=== PATIENT | male | born 1975 | race Caucasian/White ===

== ENCOUNTER 2017-09-03 08:26 | Inpatient (IN) ==
--- NOTE | 2017-09-03 08:35 | Emergency Department Note ---
Disposition Clinical Impression: Abscess Disposition: Admitted As Inpatient Condition: Fair Referrals: Mindy Heranndes [Primary Care Provider] - Time of Disposition: 09:57 General Adult HPI - General Chief complaint: ED Recheck/Abnormal Lab/Rx Stated complaint: Cyst Groin area Time Seen by Provider: 09/03/17 08:32 Source: patient Limitations: no limitations Nursing Notes Reviewed: Yes Vital Signs Reviewed: Yes - History of Present Illness HPI Narrative: Mr. Cardenas, a 42yo male, presents from home for wound recheck. He was seen and evaluated in this department 2 days ago for a perineal abscess which was I indeed, he was discharged on Keflex. He has been compliant is not missed any interbody doses. He is concerned as the abscess is larger than when he was discharged previously. Pain Scale: 10 - Related Data Previous Rx's Medication Instructions Recorded Cephalexin [Keflex] 500 mg PO TID #15 capsule 09/01/17 OxyCODONE/APAP 5/325 [Percocet 1 each PO Q6HR PRN #12 tablet 09/01/17 5/325 MG] Allergies Allergy/AdvReac Type Severity Reaction Status Date / Time fentanyl Allergy Nausea Verified 09/03/17 08:31 morphine Allergy Hives Verified 09/03/17 08:31 Past Medical History - Past Medical History Medical history: Reports: no medical history Psychiatric history: Reports: depression - Social History Smoking Status: Current every day smoker Smokeless Tobacco Status: No Alcohol use: Reports: occasionally Drug use: Reports: opiates Physical Exam Vital Signs Reviewed General: Patient is alert, oriented, and in no acute distress. HEENT: No facial asymmetry. Head is normocephalic and atraumatic. PERRLA, EOMI. Cardiovascular: Heart regular rate and rhythm without clicks, rubs, gallops, or murmurs. No JVD. PMI nondisplaced. Respiratory: Symmetric chest rise with good respiratory effort. Bilateral breath sounds are clear without wheezing, crackles, or rhonchi. Abdomen: Obese. Bowel sounds present normoactive x-4 quadrants. Abdomen is soft, nondistended, and nontender. Musculoskeletal: Spontaneously moving all extremities Neuro: Sensation to light touch intact in perineum and in lower extremities. Skin: Fluctuant erythematous abscess in perineium, just posterior to scrotum, measuring 3cm x 1.5cm. Psych: Patient's affect is appropriate for situation. - General Limitations: no limitations General appearance: alert, in no apparent distress Course Course Narrative: Patient was seen and evaluated in the ED [address] showed a abscess did not track to the rectum. There was bedside I indeed. Patient was discharged home on Keflex. CT scan on previous visit showed no tracking to the anus. Bedside ultrasound on this visit showed drainable fluid consistent with abscess, no Doppler pulse. Concern is patient has recurrent and worsening abscess despite outpatient by mouth antibiotics. He is agreeable to admission to the hospital for IV antibiotics and surgical consultation. I discussed the patient with on-call general surgery, Dr. Peña, who agrees to accept the patient on consultation. He recommends bedside I&D while in the emergency department with iodoform packing. Abscess was I&D at bedside. Approximately 15 mm of foul-smelling brown/ purulent fluid erupted. Was irrigated and packed with iodine gauze. Aerobic and anaerobic cultures sent. Empiric vancomycin and Zosyn started. Concern for the need of anaerobic coverage given the location of the abscess in his persistence despite outpatient Keflex. I discussed the patient with the admitting hospitalist, Dr. Arguelles, agrees to accept the patient for continued evaluation and management with general surgery on consultation. Vital Signs Temperature 98.1 F 09/03/17 08:28 Pulse Rate 112 09/03/17 08:28 Respiratory Rate 16 09/03/17 08:28 Blood Pressure 139/76 09/03/17 08:28 O2 Sat by Pulse Oximetry 99 09/03/17 08:28 Temperature 98.1 F 09/03/17 08:28 Pulse Rate 86 09/03/17 09:38 Respiratory Rate 18 09/03/17 09:38 Blood Pressure 126/78 09/03/17 09:38 O2 Sat by Pulse Oximetry 96 09/03/17 09:38 Oxygen Delivery Oxygen Delivery Room Air Procedures - Abscess I/D Consent obtained: verbal consent Site: other (Perineum) Sedation/analgesia: none Local Anesthetic: lidocaine 1%, with epi Amount of Anesthesia Used (mL): 5 Technique: incised with #11 blade Amount of fluid: 15 (Foul smelling, purulant, brown) Irrigation: Yes Packing used?: iodoform Complications: pain Medical Decision Making - Lab Data Result diagrams: 09/03/17 08:55 09/03/17 08:55 Lab Results 09/03/17 09/03/17 09/03/17 Range/Units 08:55 08:55 08:55 WBC 10.3 (4.3-11.1) K/mcL RBC 4.95 (4.19-5.50) M/mcL Hgb 14.6 (12.9-16.9) g/dL Hct 43.5 (37.5-50.1) % MCV 87.9 (83.0-100.0) fL MCH 29.5 (28.0-33.3) pg MCHC 33.6 (31.6-35.5) g/dL RDW 13.0 (11.5-14.5) % Plt Count 357 (140-400) K/mcL MPV 9.8 (9.4-12.4) fL Immature Gran % 0.4 (0-4) % Seg Neutrophils % 79.0 % Lymphocytes % 13.4 % Monocytes % 3.9 % Eosinophils % 3.0 % Basophils % 0.3 % Neutrophils # 8.2 (1.6-8.9) K/mcL Lymphocytes # 1.4 (0.6-4.6) K/mcL Monocytes # 0.4 (0.0-1.3) K/mcL Eosinophils # 0.3 (0.0-0.6) K/mcL Basophils # 0.0 (0.0-0.2) K/mcL Sodium 138 (136-145) mEq/L Potassium 3.6 (3.5-5.1) mEq/L Chloride 105 (98-107) mEq/L Carbon Dioxide 28 (23-29) mEq/L BUN 9 (6-20) mg/dL Creatinine 0.98 (0.70-1.30) mg/dL Est GFR ( Amer) > 60 (> 60) Est GFR (Non-Af Amer) > 60 (> 60) BUN/Creatinine Ratio 9 (6-26) Glucose 130 H (70-105) mg/dL Calculated Osmolality 286 (280-300) Lactic Acid 2.3 H (0.5-2.2) mmol/L Calcium 9.0 (8.6-10.3) mg/dL Attestation Statement - Attestation Attestation: I examined this patient and my medical decision-making was reviewed with the Resident Physician. I agree with the documented findings, disposition and treatment plan as described except to the extent set forth below. Patient to the ED with a chief complaint of a worsening abscess. Patient was seen 2 days ago and had an I&D of an abscess posterior to the scrotum. He states he got more painful and has reaccumulated. On examination he has an erythematous area of fluctuance posterior to the scrotum and anterior to his anus. Plan. Labs IV antibiotics and admission.
[2017-09-03] MEDS ORDERED: *HR* HYDROmorphone (PF) 1 MG/ML SYRINGE IVP ONE (09:05)
[2017-09-03 09:08] LABS: Basophils % 0.3 %; Eosinophils # 0.3 K/mcL (0.0-0.6); Hematocrit 43.5 % (37.5-50.1); Hemoglobin 14.6 g/dL (12.9-16.9); Immature Granulocytes % 0.4 % (0-4); Lymphocytes # 1.4 K/mcL (0.6-4.6); Lymphocytes % 13.4 %; Mean Corpuscular HGB Conc 33.6 g/dL (31.6-35.5); Mean Corpuscular Hemoglobin 29.5 pg (28.0-33.3); Mean Corpuscular Volume 87.9 fL (83.0-100.0); Mean Platelet Volume 9.8 fL (9.4-12.4); Monocytes # 0.4 K/mcL (0.0-1.3); Monocytes % 3.9 %; Neutrophils # 8.2 K/mcL (1.6-8.9); Platelet Count 357 K/mcL (140-400); Red Blood Count 4.95 M/mcL (4.19-5.50)
[2017-09-03 09:19] LABS: BUN/Creatinine Ratio 9 (6-26); Blood Urea Nitrogen 9 mg/dL (6-20); Carbon Dioxide 28 mEq/L (23-29); Chloride 105 mEq/L (98-107); Glucose 130 mg/dL (70-105); Osmolality,Calculated 286 (280-300); Potassium 3.6 mEq/L (3.5-5.1); Sodium 138 mEq/L (136-145); eGFR For African Americans > 60 (> 60); eGFR For Non-African Americans > 60 (> 60)
[2017-09-03] MEDS ORDERED: Piperacillin/Tazobactam 3.375 GM in Water for inj. (sterile) 20 ML IVP ONE (09:41)
[2017-09-03] MEDS ORDERED: Vancomycin 1,500 MG in D5% in Water 250 ML IVPB ONE (10:00)
[2017-09-03] MEDS ORDERED: 0.9 % Sodium Chloride 1,000 ML IVC ONE (10:23)
[2017-09-03] MEDS ORDERED: *HR* OxyCODONE/APAP 5/325 TABLET PO ONE ×2 (10:38→16:07)
--- NOTE | 2017-09-03 11:38 | Event Note ---
Date of Encounter: 09/03/17 Time of Encounter: 11:37 Patient seen and examined with nurse practitioner. Perennial abscess with failed outpatient antibiotic therapy. Patient had I&D performed in the emergency room. Lactic acid 2.3, will hydrate. Vitals are stable. We will start the patient on vancomycin and Zosyn. Await cultures. Surgery notified
[2017-09-03] MEDS ORDERED: Naloxone 0.4 MG/ML INJ IVP PRN (11:57)
[2017-09-03] MEDS ORDERED: Ondansetron ODT 4 MG TAB.RAPDIS SL PRN (11:57)
[2017-09-03] MEDS ORDERED: Acetaminophen 325 MG TABLET PO PRN (11:57)
[2017-09-03] MEDS ORDERED: Vancomycin 2,000 MG in D5% in Water 250 ML IVPB SCH (12:00)
--- NOTE | 2017-09-03 12:10 | Internal Med History&Physical ---
Date of Encounter: 09/03/17 Time of Encounter: 12:07 Assessment and Plan (1) Abscess Current visit: Yes Status: Acute Abscess I&D in the ER with wound culture sent patient has failed outpatient treatment of Keflex we will initiate on vancomycin and Zosyn Surgery has been consulted per ER physician-Dr. Peña (2) DVT prophylaxis Current visit: Yes Status: Acute Lovenox subcutaneous (3) Elevated lactic acid level Current visit: Yes Status: Acute 1 we will continue with IV fluids overnight-recheck lactate Internal Medicine - H&P: HPI Chief complaint: groin pain Admitted From: Emergency Dept Plans for Post Hospital Care: Home History of present illness: Mr. Cardenas is a 42 year old male no past medical history. According to patient he was evaluated 2 days ago and this ER for a a perineal abscess at that time the abscess was I/D, CT of pelvis shows no tunneling or he was given oral Keflex and discharged home. He is taking his medications as prescribed and has not missed any dose, however he continues to experience discomfort and has noted abscess is growing larger since being discharged. He returned to the ER for evaluation. In the ER ultrasound was completed which did reveal abscess with fluid, surgery was consult. Advised I&D, abscess was I&D with brown purulent fluid which was sent for culture. The wound was packed with iodine gauze. Patient has been A for further workup and evaluation Past Med Surg Social Fam HX - Past Medical History Medical history: no medical history Psychiatric history: depression - Social History Smoking Status: Current every day smoker Packs per day: 1 Smokeless Tobacco Status: No Alcohol use: none, occasionally Drug use: opiates - Additional Family History Additional family history: Reviewed and noncontributory Internal Medicine - H&P: Meds Cephalexin [Keflex] 500 mg PO TID #15 capsule 09/01/17 [Rx] OxyCODONE/APAP 5/325 [Percocet 5/325 MG] 1 each PO Q6HR PRN #12 tablet 09/01/17 [Rx] 3 Allergy/AdvReac Type Severity Reaction Status Date / Time fentanyl Allergy Nausea Verified 09/03/17 08:31 morphine Allergy Hives Verified 09/03/17 08:31 All Systems PM: A 10-system review of systems was performed and is negative for pertinent findings except as documented above in the HPI. - Constitutional Constitutional: no chills, no fever(s), no night sweats - EENT Eyes: no change in vision, no discharge, no pain, no photophobia Nose, mouth and throat: no dysphagia, no nasal discharge, no neck pain, no sore throat - Cardiovascular Cardiovascular ROS IM: no chest pain, no diaphoresis, no dyspnea, no lightheadedness, no palpitations, no syncope - Respiratory Respiratory: no cough, no dyspnea, no wheezing, no excessive phlegm production - Gastrointestinal Gastrointestinal: no abdominal pain, no diarrhea, no hematemesis, no hematochezia, no melena, no nausea, no vomiting - Musculoskeletal Musculoskeletal ROS IM: no numbness, no tingling - Integumentary Integumentary IM: no rash, no unusual bruising - Neurological Neurological ROS: no confusion, no convulsions, no focal weakness, no numbness, no tingling, no tremor(s) - Hematologic/Lymphatic Hematologic/Lymphatic: no easy bruising - Constitutional Vitals: Temp Pulse Resp BP Pulse Ox 98.1 F 86 16 121/77 96 09/03/17 08:28 09/03/17 09:38 09/03/17 11:00 09/03/17 11:00 09/03/17 09:38 General appearance: Present: A&O X 3, answers questions appropriately - Head Head exam: Present: atraumatic, normocephalic - Eye Eye exam: Present: PERRL, conjuntiva pink, sclera anicteric Pupils: Present: PERRL - Neck Neck exam general surgery: Present: supple, trachea midline. Absent: lymphadenopathy - Respiratory Respiratory exam: Present: CTAB. Absent: accessory muscle use, rales, rhonchi, wheezes - Cardiovascular Cardiovascular exam: Present: RRR, +S1, +S2. Absent: diastolic murmur, gallop, rubs, systolic murmur - GI/Abdominal GI/Abdominal exam: Present: normal bowel sounds, soft, no peritoneal signs. Absent: distended, tenderness - Incison Incision: Present: red Comments: Incision to perineal area with packing intact Internal Med - H&P Results - Labs CBC & Chem 7: 09/03/17 08:55 09/03/17 08:55
--- NOTE | 2017-09-03 12:51 | General Surgery Consult Note ---
Date of Encounter: 09/03/17 Time of Encounter: 12:50 Assessment and Plan (1) Abscess Current Visit: Yes Status: Acute An I&D was performed in the emergency department prior to evaluation by surgery. Of note that the incision was small, and the packing was laying on the dressing when evaluated by this COLLETER. I did review this with the patient and the decision was made to re-anesthetized him and increase the area of the incision. See procedure note details above. Plan: -wound care daily: remove dressing and packing beginning 09/04/2017. Shower with antibacterial soap. Repack with 1/4 inch iodoform gauze for 2 days then pack with 1/4 inch plain gauze daily. Cover with a dry dressing and tape secure. Change outer dressing prn and after bowel movements. Patient states he has a relative who would do his packing for him. He denies need for home health -no indication to keep patient NPO. Dietary orders per primary team. -Follow-up in the office in one week for reevaluation. -Check hgbA1c -No acute surgical indication is noted at this time. Surgery will sign off at this time. Thank you for allowing us to participate in Mr. Chandler care. Please call for any further questions. (2) Elevated lactic acid level Current Visit: Yes Status: Acute IV ATBX and management per primary team. Wound cultures pending History of Present Illness Consult date: 09/03/17 (Dr. Aneudy Peña) Requesting physician: Ophelia Soto See History of present illness: Mr Cardenas is a 42 year old male with a PMH of smoking and opiate use who is admitted for a perianal abscess for which he failed outpatient keflex therapy. He presented to the ED on 09/03/2017 and underwent an I&D of the area with noted return of purulent material. He was packed with iodofomr. Surgery has been asked to see this patient for further recommendations or management of abscess. He reports multiple episodes of abscess in the same are over the last year. He denies fever, chills, chest pain, shortness of breath, difficulty urinating, changes in bowel habits, black, bloody, or tarry stool, constipation, or diarrhea. He denies IV drug use. He denies a history of diabetes. Past Med Surg Social Fam HX - Past Medical History Source: patient, old records reviewed Medical history: other (opiate use) Psychiatric history: depression - Past Surgical History Surgical History: no surgical history - Social History Smoking Status: Current every day smoker Packs per day: 1 Smokeless Tobacco Status: No Alcohol use: none, occasionally Drug use: opiates Medications and Allergies Cephalexin [Keflex] 500 mg PO TID #15 capsule 09/01/17 [Rx] OxyCODONE/APAP 5/325 [Percocet 5/325 MG] 1 each PO Q6HR PRN #12 tablet 09/01/17 [Rx] Adhesive Tape [Paper Tape] 1 each TP AD #1 tape 09/03/17 [Rx] Gauze Bandage [Gauze] 4 each TP AD #120 bandage 09/03/17 [Rx] Polyhexam Biguan/Gauze Bandage [Curity Amd Packing Strips] 1 each TP DAILY #30 strip 09/03/17 [Rx] 3 Allergy/AdvReac Type Severity Reaction Status Date / Time fentanyl Allergy Nausea Verified 09/03/17 08:31 morphine Allergy Hives Verified 09/03/17 08:31 Review of Systems All systems PM: reviewed and no additional remarkable complaints except as stated All systems PM: A 10-system review of systems was performed and is negative for pertinent findings except as documented above in the HPI. General Surgery Exam Initial Vital Signs Temp Pulse Resp BP Pulse Ox 98.1 F 112 16 139/76 99 09/03/17 08:28 09/03/17 08:28 09/03/17 08:28 09/03/17 08:28 09/03/17 08:28 - General physical appearance well developed, well nourished, no distress, moderate pain - ENT normal nares, normal mucosa, dentures, atraumatic - Neck trachea midline, no venous distension - Respiratory normal expansion, normal respiratory effort, clear to auscultation - Cardiovascular Cardiovascular exam: Present: RRR, 15, 16 - Abdomen Abdomen general surgery: Present: bowel sounds present, soft, non tender - Integumentary Integumentary general surgery: Present: other (Draining area in the perineum noted. ) - Neurologic Present: CN 2-12 grossly intact, normal coordination, normal sensation - Musculoskeletal Present: normal gait, normal posture - Psychiatric Psychiatric general surgery: Present: A&Ox3, appropriate, oriented to person, oriented to place, oriented to time, speech is normal, memory intact Exam Initial Vital Signs Temp Pulse Resp BP Pulse Ox 98.1 F 112 16 139/76 99 09/03/17 08:28 09/03/17 08:28 09/03/17 08:28 09/03/17 08:28 09/03/17 08:28 Results - Labs 09/03/17 08:55 09/03/17 08:55 Abnormal lab results Glucose 130 mg/dL (70-105) H 09/03/17 08:55 Lactic Acid 2.3 mmol/L (0.5-2.2) H 09/03/17 08:55 All other labs normal. Procedures: General Surgery - Abscess I/D Additional comments: ABSCESS INCISION AND DRAINAGE NOTE INDICATION: Abscess manifested as a tender, swollen fluctuant mass in the superficial subcutaneous tissue. INFORMED CONSENT: The risks and benefits of the procedure including incomplete drainage, scarring, infection and bleeding was explained and the patient verbalized their understanding and wished to proceed with the procedure. PROCEDURE: The area of greatest fluctuance was identified, prepped, and draped in a sterile fashion. Local anesthetic (10 MLs of 2% lidocaine) was introduced subcutaneously over the area of greatest fluctuance. A linear incision was then made over the area of greatest fluctuance, with immediate return of a large amount of purulent material. The wound was explored with a hemostat to break up loculations and 1/4 inch iodoform gauze packing was placed loosely in the wound. A dressing was then applied. FINDINGS: Purulent drainage. EBL: <5 mL COMPLICATIONS: None. Signature: AMINA Jack Consult Discharge Plan - Plan Additional Instructions: -wound care daily: remove dressing and packing beginning 09/04/2017. -Shower with antibacterial soap. -Repack with 1/4 inch iodoform gauze for 2 days then (beginning 09/06/2017) pack with 1/4 inch plain gauze daily. Cover with a dry dressing and tape secure. -Change outer dressing prn and after bowel movements. Patient states he has a relative who would do his packing for him. He denies need for home health Take the antibiotics prescribed by the medicine doctors at the hospital as directed. Referrals: Mindy Hernandes [Primary Care Provider] - Beverly Ramesh CNP [Advanced Practice Nurse] - 09/12/17 8:00 am Prescriptions: Adhesive Tape [Paper Tape] 1 each TP AD #1 tape Gauze Bandage [Gauze] 4 each TP AD #120 bandage Polyhexam Biguan/Gauze Bandage [Curity Amd Packing Strips] 1 each TP DAILY #30 strip
[2017-09-03] MEDS: 0.9 % Sodium Chloride 1,000 ML IVC SCH (13:49)
[2017-09-03] MEDS ORDERED: Lidocaine 2% Syringe 100 MG/5 ML ONE (14:42)
[2017-09-03] MEDS ORDERED: Lidocaine -MPF 1% 2 ML VIAL ONE ×2 (14:44→14:45)
[2017-09-03 15:23] LABS: Hemoglobin A1C 5.1 %
[2017-09-03] MEDS ORDERED: Piperacillin/Tazobactam 3.375 GM/200 ML BAG IVPB SCH (16:00)
[2017-09-03] MEDS: Piperacillin/Tazobactam 3.375 GM/200 ML BAG IVPB SCH ×2 (16:21→23:22)
[2017-09-03] MEDS: *HR* OxyCODONE/APAP 5/325 TABLET PO PRN ×2 (17:32→23:09)
[2017-09-03] MEDS ORDERED: Melatonin 3 MG TABLET PO PRN (21:23)
[2017-09-03] MEDS: Ibuprofen 600 MG TABLET PO PRN (22:04)
[2017-09-03] MEDS: Vancomycin 2,000 MG in D5% in Water 500 ML IVPB SCH (22:25)
[2017-09-04] MEDS: 0.9 % Sodium Chloride 1,000 ML IVC SCH ×2 (04:08→21:07)
[2017-09-04] MEDS: Ibuprofen 600 MG TABLET PO PRN ×3 (04:11→21:04)
[2017-09-04 04:18] LABS: Basophils % 0.5 %; Eosinophils # 0.4 K/mcL (0.0-0.6); Eosinophils % 5.1 %; Hematocrit 39.2 % (37.5-50.1); Immature Granulocytes % 0.5 % (0-4); Lymphocytes # 2.5 K/mcL (0.6-4.6); Lymphocytes % 33.7 %; Mean Corpuscular HGB Conc 32.4 g/dL (31.6-35.5); Mean Corpuscular Hemoglobin 29.2 pg (28.0-33.3); Mean Corpuscular Volume 90.1 fL (83.0-100.0); Mean Platelet Volume 10.1 fL (9.4-12.4); Monocytes # 0.5 K/mcL (0.0-1.3); Monocytes % 6.3 %; Neutrophils # 3.9 K/mcL (1.6-8.9); Nucleated Red Blood Cells 0.3 /100 WBC (0); Platelet Count 332 K/mcL (140-400); Red Blood Count 4.35 M/mcL (4.19-5.50); Red Cell Distribution Width 12.9 % (11.5-14.5); Segmented Neutrophils % 53.9 %
[2017-09-04 04:23] LABS: Hemoglobin 12.7 g/dL (12.9-16.9)
[2017-09-04 04:49] LABS: BUN/Creatinine Ratio 12 (6-26); Blood Urea Nitrogen 11 mg/dL (6-20); Calcium 8.4 mg/dL (8.6-10.3); Carbon Dioxide 24 mEq/L (23-29); Chloride 110 mEq/L (98-107); Glucose 115 mg/dL (70-105); Magnesium 2.1 mg/dL (1.6-2.6); Osmolality,Calculated 286 (280-300); Potassium 4.1 mEq/L (3.5-5.1); Sodium 138 mEq/L (136-145); eGFR For African Americans > 60 (> 60); eGFR For Non-African Americans > 60 (> 60)
[2017-09-04] MEDS: *HR* OxyCODONE/APAP 5/325 TABLET PO PRN ×4 (05:21→23:21)
[2017-09-04] MEDS ORDERED: *HR* Enoxaparin 80 MG/0.8 ML SYRINGE SQ SCH (07:00)
[2017-09-04] MEDS: Piperacillin/Tazobactam 3.375 GM/200 ML BAG IVPB SCH ×2 (09:12→19:14)
[2017-09-04] MEDS: *HR* Enoxaparin 40 MG/0.4 ML SYRINGE SQ SCH (09:12)
[2017-09-04] MEDS: Vancomycin 2,000 MG in D5% in Water 500 ML IVPB SCH ×2 (09:12→23:21)
--- NOTE | 2017-09-04 18:46 | Internal Med Progress Note ---
Date of Encounter: 09/04/17 Time of Encounter: 11:10 - Assessment and plan (1) Abscess Current Visit: Yes Status: Acute Assessment and plan: Patient presented to emergency department for I&D of perianal abscess. He had been seen previously and failed outpatient Keflex therapy. He presented on 09/03 for increasing size. He underwent an I&D with noted return of purulent drainage. He was packed with iodoform and was evaluated by surgery. Surgery 3 opened the wound due to small size. Wound care daily as ordered by surgery. Patient denies need for home health states family will do the packing for him. He will need to follow up in one week in the office for reevaluation. Surgery has signed off. (2) DVT prophylaxis Current Visit: Yes Status: Acute Assessment and plan: Patient is on Lovenox subcutaneous daily, he is also ambulatory. (3) Elevated lactic acid level Current Visit: Yes Status: Resolved - Time Spent With Patient less than 15 minutes - Subjective Interval history: Sensation of systems appetite 11:10 AM. He is alert and awake. He reports pain , states that he is ready to go home. Education completed on failure of outpatient therapy and need for continued therapy here. Patient agreed. He denies any headache or abdominal pain. He denies dizziness, vision changes, nausea or vomiting, chest pain or shortness of breath. - Constitutional Vitals: Temp Pulse Resp BP Pulse Ox 98 F 73 16 136/73 96 09/04/17 12:08 09/04/17 12:08 09/04/17 12:08 09/04/17 12:08 09/04/17 12:08 General appearance: Present: cooperative, A&O X 3, pleasant, no acute distress, answers questions appropriately - Head Head exam: Present: atraumatic, normal inspection, normocephalic - Eye Eye exam: Present: normal appearance, conjuntiva pink, sclera anicteric - Neck Neck exam general surgery: Present: normal inspection, supple, trachea midline. Absent: lymphadenopathy, tenderness - Respiratory Respiratory exam: Present: CTAB. Absent: accessory muscle use, chest wall tenderness, decreased breath sounds, rales, respiratory distress, rhonchi, wheezes - Cardiovascular Cardiovascular exam: Present: RRR, +S1, +S2. Absent: diastolic murmur, gallop, rubs, systolic murmur - GI/Abdominal GI/Abdominal exam: Present: normal bowel sounds, soft. Absent: distended, hepatomegaly, tenderness - Extremities Exam Extremities exam: Present: normal capillary refill, normal inspection, warm, radial pulses palpable and symmetrical. Absent: calf tenderness, cyanotic, pedal edema - Neurological Exam Neurological exam: Present: alert, oriented X3, no focal deficits. Absent: altered, facial droop, speech deficit - Skin Skin exam: Present: dry, intact, normal color, warm. Absent: rash Internal Medicine: Result - Labs CBC & Chem 7: 09/04/17 03:47 09/04/17 03:47 Labs: Short CBC 09/04/17 Range/Units 03:47 WBC 7.3 (4.3-11.1) K/mcL Hgb 12.7 L D (12.9-16.9) g/dL Hct 39.2 (37.5-50.1) % Plt Count 332 (140-400) K/mcL Neutrophils # 3.9 (1.6-8.9) K/mcL BMP 09/04/17 03:47 Sodium 138 Potassium 4.1 Chloride 110 H Carbon Dioxide 24 BUN 11 Creatinine 0.90 Glucose 115 H Calcium 8.4 L Consult Discharge Plan - Plan Additional Instructions: -wound care daily: remove dressing and packing beginning 09/04/2017. -Shower with antibacterial soap. -Repack with 1/4 inch iodoform gauze for 2 days then (beginning 09/06/2017) pack with 1/4 inch plain gauze daily. Cover with a dry dressing and tape secure. -Change outer dressing prn and after bowel movements. Patient states he has a relative who would do his packing for him. He denies need for home health Take the antibiotics prescribed by the medicine doctors at the hospital as directed. Referrals: Mindy Hernandes [Primary Care Provider] - Beverly Ramesh CNP [Advanced Practice Nurse] - 09/12/17 8:00 am Prescriptions: Adhesive Tape [Paper Tape] 1 each TP AD #1 tape Gauze Bandage [Gauze] 4 each TP AD #120 bandage Polyhexam Biguan/Gauze Bandage [Curity Amd Packing Strips] 1 each TP DAILY #30 strip
[2017-09-04] MEDS ORDERED: *HR* OxyCODONE/APAP 5/325 TABLET PO PRN (18:49)
[2017-09-05] MEDS: Piperacillin/Tazobactam 3.375 GM/200 ML BAG IVPB SCH ×2 (00:21→07:57)
[2017-09-05] MEDS: 0.9 % Sodium Chloride 1,000 ML IVC SCH (04:19)
[2017-09-05] MEDS: *HR* OxyCODONE/APAP 5/325 TABLET PO PRN (05:26)
[2017-09-05] MEDS: *HR* Enoxaparin 40 MG/0.4 ML SYRINGE SQ SCH (05:27)
[2017-09-05] MEDS ORDERED: *HR* OxyCODONE/APAP 5/325 TABLET PO PRN (07:01)
[2017-09-05 07:18] VITALS: BP 127/79
--- NOTE | 2017-09-05 09:30 | Discharge Summary ---
Date of Encounter: 09/05/17 Time of Encounter: 09:00 - Discharge Diagnosis (1) Abscess Priority: Primary Status: Acute Comments: Patient presented to emergency department for I&D of perianal abscess. Failed outpatient Keflex therapy. He presented on 09/03/17 for increasing size of abscess. He underwent an I&D with noted return of purulent drainage. He was packed with iodoform and was evaluated by surgery. Surgery reopened the wound due to small size. Wound care daily as ordered by surgery. Wound CX negative for growth. Patient denies need for home health states family will do the packing for him. He will need to follow up in one week in the office for reevaluation. Bactrim DS for home per recommendation of surgery CAT SITTER. Tylenol and Motrin at home for pain. Dosing discussed. (2) DVT prophylaxis Priority: Secondary Status: Acute Comments: Lovenox subcutaneous daily. Patient was ambulatory in the room. (3) Elevated lactic acid level Priority: Secondary Status: Resolved Comments: Resolved. Patient is afebrile, no tachycardia, normotensive. No signs of sepsis. - Discharge Medications Prescriptions: Adhesive Tape [Paper Tape] 1 each TP AD #1 tape Gauze Bandage [Gauze] 4 each TP AD #120 bandage Polyhexam Biguan/Gauze Bandage [Curity Amd Packing Strips] 1 each TP DAILY #30 strip Sulfamethoxazole/Trimeth DS [Bactrim DS] 1 each PO BID #14 tablet Home Medications: OxyCODONE/APAP 5/325 [Percocet 5/325 MG] 1 each PO Q6HR PRN #12 tablet 09/01/17 [Rx] Adhesive Tape [Paper Tape] 1 each TP AD #1 tape 09/03/17 [Rx] Gauze Bandage [Gauze] 4 each TP AD #120 bandage 09/03/17 [Rx] Polyhexam Biguan/Gauze Bandage [Curity Amd Packing Strips] 1 each TP DAILY #30 strip 09/03/17 [Rx] Acetaminophen [Tylenol] 650 mg PO Q6HR PRN tablet 09/05/17 [Rx] Ibuprofen [Motrin] 600 mg PO Q6HR PRN tablet 09/05/17 [Rx] Sulfamethoxazole/Trimeth DS [Bactrim DS] 1 each PO BID #14 tablet 09/05/17 [Rx] Allergies/Adverse Reactions: 3 Allergy/AdvReac Type Severity Reaction Status Date / Time fentanyl Allergy Nausea Verified 09/03/17 08:31 morphine Allergy Hives Verified 09/03/17 08:31 Date of admission: 09/03/17 10:25 Primary care physician: Mindy Hernandes Discharging clinician: Mindy Subramanian Anticipated date of discharge: 09/05/17 - Patient Status Disposition: Home, Self-Care Condition: Good Functional capacity at discharge: independent ambulation Overall status at discharge: patient is back to baseline - Discharge Instructions Follow Up With: Mindy Hernandes [Primary Care Provider] - Beverly Ramesh CNP [Advanced Practice Nurse] - 09/12/17 8:00 am Forms: ED Satisfaction Letter Additional Instructions: -wound care daily: remove dressing and packing beginning 09/04/2017. -Shower with antibacterial soap. -Repack with 1/4 inch iodoform gauze for 2 days then (beginning 09/06/2017) pack with 1/4 inch plain gauze daily. Cover with a dry dressing and tape secure. -Change outer dressing prn and after bowel movements. Patient states he has a relative who would do his packing for him. He denies need for home health Take the antibiotics prescribed by the medicine doctors at the hospital as directed. Bactrim DS 1 tablet twice daily for 7 days. Follow-up with surgery as scheduled Return to your normal activities and diet as tolerated Follow-up with your primary care provider as scheduled for a follow-up visit. - Diet and Activity Activity: increase activity as tolerated Diet: advance to your usual diet Hospital course: Mr. Cardenas is a 42 year old male who presented to the emergency room for increasing size and perirectal abscess. He had been treated initially with Keflex and was admitted for failed outpatient treatment. Patient placed on IV vancomycin and IV Zosyn for 1 day. The abscess was I&D in the emergency department, culture revealed no growth. Labs are stable, vitals are within normal limits. He was evaluated by surgery team who have signed off. Recommendations for wound care per surgery team. He denies need for home health for wound care, states family member will do it. Tylenol and Motrin for pain. Surgical CAT SITTER and I discussed antibiotic therapy prior to follow-up appointment, Bactrim DS 1 tablet twice daily. Patient will follow-up in the office in one week. He stable and appropriate for discharge. - Time Spent with Patient Total time spent providing and/or coordinating discharge services: Less than 30 minutes - Constitutional Vitals: Temp Pulse Resp BP Pulse Ox 97.8 F 68 17 127/79 96 09/05/17 07:17 09/05/17 07:17 09/05/17 07:17 09/05/17 07:17 09/05/17 08:03 General appearance: Present: cooperative, A&O X 3, pleasant, no acute distress, answers questions appropriately - Head Head exam: Present: atraumatic, normal inspection, normocephalic - Eye Eye exam: Present: normal appearance, conjuntiva pink, sclera anicteric - Neck Neck exam general surgery: Present: supple, trachea midline. Absent: lymphadenopathy - Respiratory Respiratory exam: Present: CTAB. Absent: accessory muscle use, chest wall tenderness, decreased breath sounds, rales, respiratory distress, rhonchi, wheezes - Cardiovascular Cardiovascular exam: Present: RRR, +S1, +S2. Absent: diastolic murmur, gallop, rubs, systolic murmur - GI/Abdominal GI/Abdominal exam: Present: normal bowel sounds, soft. Absent: distended, hepatomegaly, tenderness - Extremities Exam Extremities exam: Present: normal capillary refill, warm, radial pulses palpable and symmetrical. Absent: calf tenderness, cyanotic, pedal edema - Neurological Exam Neurological exam: Present: alert, oriented X3, no focal deficits. Absent: altered, facial droop, speech deficit - Skin Skin exam: Present: dry, normal color, warm. Absent: intact, rash
[2017-09-05] MEDS: Ibuprofen 600 MG TABLET PO PRN (11:20)
[2017-09-05] MEDS ORDERED: Aminoglycoside Consult 1 EACH MC ONE (11:34)
== END 2017-09-05 11:35 | disposition home or self-care (01) | DRG 581 ==
LOC: EMEROO 08:26 → 2SOUTHHOLD 10:25 → 3BNU 15:15
PROVIDERS: ADMIT Hospitalist; ATTEND Hospitalist

== ENCOUNTER 2018-10-04 12:15 | Observation (INO) ==
[2018-10-04] MEDS ORDERED: Isovue-370 500 ML BOTTLE IVP ONE (13:04)
--- NOTE | 2018-10-04 13:04 | Emergency Department Note ---
Disposition Clinical Impression: Perineal abscess Disposition: Admitted As Inpatient Condition: Fair Time of Disposition: 22:39 Skin/Abscess/FB HPI Chief complaint: ED Skin/Abscess/Foreign Body Stated complaint: abscess Time Seen by Provider: 10/04/18 12:28 Source: patient Limitations: no limitations Nursing Notes Reviewed: Yes Vital Signs Reviewed: Yes HPI Narrative: 43-year-old male presents from home for evaluation of abscess in the perineal region. So 4th such occurrence for him. This began 4 days ago and is progressively become worse. He has sharp pains with any Valsalva including defecation. No difficulty with urination. No fevers or chills. He was previously admitted for surgical evaluation; managed medically with IV antibiotics and surgical I&D on the inpatient floor. He has never been to the operating room for this. PMH: Chronic back pain, history of prior perineal abscess Daily medications: Gabapentin ROS: Positive: As above Negative: Diarrhea, constipation, melena, hematochezia, fever, chills, nausea, vomiting, abdominal pain, dysuria, lower extremity numbness or tingling or weakness. Home Medications Medication Instructions Recorded Confirmed Gabapentin [Neurontin] 800 mg PO TID 10/04/18 10/04/18 OxyCODONE/APAP 5/325 [Percocet 1 each PO HS 10/04/18 10/04/18 5/325 MG] Oxycodone HCl [Roxybond] 15 mg PO TID 10/04/18 10/04/18 Previous Rx's Medication Instructions Recorded OxyCODONE/APAP 5/325 [Percocet 1 each PO Q6HR PRN #12 tablet 09/01/17 5/325 MG] Adhesive Tape [Paper Tape] 1 each TP AD #1 tape 09/03/17 Gauze Bandage [Gauze] 4 each TP AD #120 bandage 09/03/17 Polyhexam Biguan/Gauze Bandage 1 each TP DAILY #30 strip 09/03/17 [Curity Amd Packing Strips] Acetaminophen [Tylenol] 650 mg PO Q6HR PRN tablet 09/05/17 Ibuprofen [Motrin] 600 mg PO Q6HR PRN tablet 09/05/17 Sulfamethoxazole/Trimeth DS 1 each PO BID #14 tablet 09/05/17 [Bactrim DS] Oxycodone HCl/Acetaminophen 1 each PO Q4-6H PRN #14 tablet 09/06/17 [Percocet 5-325 mg Tablet] Doxycycline 100 mg PO BID #20 capsule 10/06/17 Sulfamethoxazole/Trimeth DS 1 each PO BID #20 tablet 10/06/17 [Bactrim DS] Allergies Allergy/AdvReac Type Severity Reaction Status Date / Time morphine Allergy Hives Verified 08/28/18 19:12 fentanyl AdvReac Nausea Verified 08/28/18 19:12 All systems ED: reviewed and negative except as stated. Review of Systems: As Per HPI Past Medical History - Past Medical History Medical history: Reports: no medical history Surgical history: Reports: no surgical history Psychiatric history: Reports: depression - Social History Smoking Status: Current every day smoker Smokeless Tobacco Status: No Alcohol use: Reports: rarely Drug use: Reports: none Physical Exam Vital Signs Reviewed General: Patient is alert, oriented, and in no acute distress. Head: atraumatic, normocephalic Eye: normal appearance, PERRL, EOMI, no scleral icterus, no conjunctival injection ENT: mucous membranes moist, normal external ear exam Neck: normal inspection, trachea midline, full ROM Chest: normal inspection, symmetric chest rise Respiratory: Good respiratory effort. Bilateral breath sounds are clear without wheezing, crackles, or rhonchi. Cardiovascular: Regular rate and rhythm. No clicks, rubs, gallops, or murmors. Normal heart sounds. Abdomen: Bowel sounds present normoactive. Abdomen is soft, nondistended, and nontender. No guarding or rebound. No organomegaly noted. Perineal exam: Registered Representative present. Boggy erythematous tissue midline peritoneum and close approximation to the rectum, tender to palpation. Evidence of previous incision and drainage. Musculoskeletal: Spontaneously moving all extremities. Skin: warm, dry. Neuro: GCS 15. No focal neurologic deficits observed. Psych: Patient's affect is appropriate for situation. - General Limitations: no limitations General appearance: alert, in no apparent distress Course Course Narrative: Bedside ultrasound shows cobblestoning with no overt drainable fluid collection. Concern for abscess extending into the superficial and deep fascial fossa CT abdomen pelvis with IV contrast shows a large 5 x 1.6 cm fluid collection in the patient's deep tissue. I discussed this with on-call general surgeon, Dr. Brian. She is on campus and agreeable to evaluating the patient while in the emergency department. Patient is admitted to general surgery, Dr. Brian. Plan for surgical debridement tonight. She has no additional recommendations at this time. Abdomen/Pelvis CT 10/04/18 13:04 IMPRESSION: 1. 5.0 x 1.6 cm elongated fluid collection along the left gluteal cleft suspicious for abscess versus pilonidal cyst. Similar appearing findings have been present dating back to 11/24/2015 but have increased in size since then. 2. Stable 3.9 cm linear soft tissue tract extending from the left perineum into the left ischioanal fat. This is stable dating back to 11/24/2015. 3. Hepatic steatosis. 4. No other acute abdominal or pelvic abnormality within the abdomen or pelvis. D/ / 10/04/2018 15:43:02 Daxa Hoyt MD / [facility] Interpreting Provider: Daxa Hoyt MD Vital Signs Temperature 98.0 F 10/04/18 12:20 Pulse Rate 96 10/04/18 12:20 Respiratory Rate 18 10/04/18 12:20 Blood Pressure 130/88 10/04/18 12:20 O2 Sat by Pulse Oximetry 94 10/04/18 12:20 Temperature 98.5 F 10/04/18 19:44 Pulse Rate 88 10/04/18 19:44 Respiratory Rate 15 10/04/18 19:44 Blood Pressure 130/80 10/04/18 19:44 O2 Sat by Pulse Oximetry 95 10/04/18 19:44 Oxygen Delivery Oxygen Delivery Room Air Skin/Abscess/Foreign Body - Lab Data Result diagrams: 10/04/18 13:25 10/04/18 13:25 Lab Results 10/04/18 10/04/18 10/04/18 Range/Units 13:25 13:25 13:25 WBC 9.6 (4.3-11.1) K/mcL RBC 5.06 (4.19-5.50) M/mcL Hgb 14.9 (12.9-16.9) g/dL Hct 45.3 (37.5-50.1) % MCV 89.5 (83.0-100.0) fL MCH 29.4 (28.0-33.3) pg MCHC 32.9 (31.6-35.5) g/dL RDW 13.8 (11.5-14.5) % Plt Count 347 (140-400) K/mcL MPV 10.0 (9.4-12.4) fL Immature Gran % 0.2 (0-4) % Seg Neutrophils % 67.9 % Lymphocytes % 23.3 % Monocytes % 5.3 % Eosinophils % 3.0 % Basophils % 0.3 % Neutrophils # 6.5 (1.6-8.9) K/mcL Lymphocytes # 2.3 (0.6-4.6) K/mcL Monocytes # 0.5 (0.0-1.3) K/mcL Eosinophils # 0.3 (0.0-0.6) K/mcL Basophils # 0.0 (0.0-0.2) K/mcL Sodium 138 (136-145) mEq/L Potassium 4.2 (3.5-5.1) mEq/L Chloride 102 (98-107) mEq/L Carbon Dioxide 29 (23-29) mEq/L BUN 13 (6-20) mg/dL Creatinine 0.94 (0.70-1.30) mg/dL Est GFR ( Amer) > 60 (> 60) Est GFR (Non-Af Amer) > 60 (> 60) BUN/Creatinine Ratio 14 (6-26) Glucose 103 (70-105) mg/dL Calculated Osmolality 286 (280-300) Lactic Acid 2.6 H (0.5-2.2) mmol/L Calcium 9.4 (8.6-10.3) mg/dL Attestation Statement - Attestation Attestation: I, John Feng, examined this patient and my medical decision-making was reviewed with the [employer]/PA/Advanced Practice Nurse/Resident Physician. I agree with the documented findings, disposition and treatment plan as described except to the extent set forth below. 43-year-old male presents emergency Department with concerns of pain in between the scrotum and the anus. Patient states he had similar pain in symptoms almost one year ago which required incision and drainage. Patient is present today because he is having difficulty with sitting and walking secondary to the pain. He states he has constipation secondary to increased pain with bowel movements. CT shows fluid collection. Surgeon, Dr. Hillman, was contacted regarding the patient's case presentation. She evaluated in the emergency department and will admit to the hospital for incision and drainage.
[2018-10-04] MEDS ORDERED: *HR* FentaNYL (PF) 100 MCG/2 ML VIAL IVP ONE (13:07)
[2018-10-04] MEDS ORDERED: Ondansetron 4 MG/2 ML VIAL IVP ONE (13:07)
[2018-10-04] MEDS ORDERED: *HR* OxyCODONE/APAP 7.5/325 TABLET PO STA (13:08)
[2018-10-04] MEDS ORDERED: Piperacillin/Tazobactam 3.375 GM in 0.9 % Sodium Chloride Mini Bag 100 ML IVPB ONE (13:09)
[2018-10-04 13:36] LABS: Basophils % 0.3 %; Eosinophils # 0.3 K/mcL (0.0-0.6); Hematocrit 45.3 % (37.5-50.1); Hemoglobin 14.9 g/dL (12.9-16.9); Immature Granulocytes % 0.2 % (0-4); Lymphocytes # 2.3 K/mcL (0.6-4.6); Lymphocytes % 23.3 %; Mean Corpuscular HGB Conc 32.9 g/dL (31.6-35.5); Mean Corpuscular Hemoglobin 29.4 pg (28.0-33.3); Mean Corpuscular Volume 89.5 fL (83.0-100.0); Monocytes # 0.5 K/mcL (0.0-1.3); Monocytes % 5.3 %; Neutrophils # 6.5 K/mcL (1.6-8.9); Platelet Count 347 K/mcL (140-400); Red Blood Count 5.06 M/mcL (4.19-5.50); Red Cell Distribution Width 13.8 % (11.5-14.5); Segmented Neutrophils % 67.9 %
[2018-10-04 13:54] LABS: BUN/Creatinine Ratio 14 (6-26); Blood Urea Nitrogen 13 mg/dL (6-20); Calcium 9.4 mg/dL (8.6-10.3); Carbon Dioxide 29 mEq/L (23-29); Chloride 102 mEq/L (98-107); Glucose 103 mg/dL (70-105); Osmolality,Calculated 286 (280-300); Potassium 4.2 mEq/L (3.5-5.1); Sodium 138 mEq/L (136-145); eGFR For Non-African Americans > 60 (> 60)
[2018-10-04] MEDS ORDERED: *HR* HYDROmorphone (PF) 1 MG/ML SYRINGE IVP ONE (15:56)
--- NOTE | 2018-10-04 17:20 | General Surg History&Physical ---
<Yeni Gtz - Last Filed: 10/04/18 17:18> Date of Encounter: 10/04/18 Time of Encounter: 04:30 Assessment and Plan (1) Abscess Current Visit: No Status: Acute The assessment and plan as outlined above was discussed with the patient and/or family members who expressed understanding and agreement. All questions were answered. History of recurrent perineal abscess requiring I&D CT abd/pelvis shows elongated fluid collection along left gluteal cleft. Plan for OR I&D today NPO Pain control Continue abx (2) Chronic pain Current Visit: Yes Status: Acute The assessment and plan as outlined above was discussed with the patient and/or family members who expressed understanding and agreement. All questions were answered. History of chronic pain Home meds of oxycodone 15 TID Qualifiers: Chronic pain type: other chronic pain Qualified Code(s): G89.29 - Other chronic pain History of Present Illness Chief complaint: perineal abscess HPI: Mr. Cardenas is a 43 year old male with past medical history of chronic pain due to falling and hitting his back on edge of a concrete step. Denies any other medical conditions. Patient presents to [facility] ED for perineal abscess and pain. Patient states it is right in middle of rectum and scrotum. Denies any drainage from site. Denies fever. Patient states has had same problem addressed 4-5 times before. Most recently, patient presented on 09/03/17 and received I&D of perineal abscess. Upon presentation to the ED, vitals are stable. CBC and BMP are unremarkable. CT abd/pelvis shows fluid collection along left gluteal cleft. Patient states he last drank pop this morning and last ate food the night before. Past Med Surg Social Fam HX - Past Medical History Medical history: no medical history Additional medical history: 3 back surgeries Psychiatric history: depression - Past Surgical History Surgical History: no surgical history Additional surgical history: BACK SURGERY - Social History Smoking Status: Current every day smoker Smokeless Tobacco Status: No Alcohol use: rarely Drug use: none Medications and Allergies RX: OxyCODONE/APAP 5/325 [Percocet 5/325 MG] 1 each PO Q6HR PRN #12 tablet 09/01/17 [Rx] Adhesive Tape [Paper Tape] 1 each TP AD #1 tape 09/03/17 [Rx] Gauze Bandage [Gauze] 4 each TP AD #120 bandage 09/03/17 [Rx] Polyhexam Biguan/Gauze Bandage [Curity Amd Packing Strips] 1 each TP DAILY #30 strip 09/03/17 [Rx] RX: Acetaminophen [Tylenol] 650 mg PO Q6HR PRN tablet 09/05/17 [Rx] RX: Ibuprofen [Motrin] 600 mg PO Q6HR PRN tablet 09/05/17 [Rx] Sulfamethoxazole/Trimeth DS [Bactrim DS] 1 each PO BID #14 tablet 09/05/17 [Rx] Oxycodone HCl/Acetaminophen [Percocet 5-325 mg Tablet] 1 each PO Q4-6H PRN #14 tablet 09/06/17 [Rx] OxyCODONE/APAP 5/325 [Percocet 5/325 MG] 1 each PO Q6HR PRN 3 Days #12 tablet 0 10/06/17 [Rx] RX: Doxycycline 100 mg PO BID #20 capsule 10/06/17 [Rx] Sulfamethoxazole/Trimeth DS [Bactrim DS] 1 each PO BID #20 tablet 10/06/17 [Rx] Allergy/AdvReac Type Severity Reaction Status Date / Time morphine Allergy Hives Verified 08/28/18 19:12 fentanyl AdvReac Nausea Verified 08/28/18 19:12 Review of Systems All systems PM: The remainder of the systems were reviewed and are negative - Constitutional no anorexia, no chills - EENT Nose, mouth and throat: no dizziness, no dysphagia - Cardiovascular no chest pain, no claudication - Respiratory no cough, no chest congestion - Gastrointestinal no abdominal pain, no belching - Genitourinary no flank pain, no hematuria - Musculoskeletal back pain, no abnormal gait - Integumentary no rash, no sores - Neurological no focal weakness, no tingling - Endocrine no cold intolerance, no excessive sweating - Hematologic/Lymphatic no easy bleeding, no lymphadenopathy - Allergic/Immunologic no itchy eyes, no wheezing General Surgery Exam Initial Vital Signs Temp Pulse Resp BP Pulse Ox 98.0 F 96 18 130/88 94 10/04/18 12:20 10/04/18 12:20 10/04/18 12:20 10/04/18 12:20 10/04/18 12:20 - Additional Findings VITAL SIGNS: Reviewed. See [employer] GENERAL: In no apparent distress. HEENT: Normocephalic, atraumatic, pupils are equal and reactive, extraocular motions intact CHEST/RESPIRATORY: The thorax is free from signs of trauma. Lung sounds: clear to auscultation, normal respiratory effort CARDIAC: Regular rate and rhythm. Normal S1 and S2, without murmurs, gallops, or rubs. VASCULAR: No Edema. : Perineal induration and erythema. Tender to palpation MUSCULOSKELETAL: Good range of motion of all major joints. Extremities without clubbing, cyanosis or edema. NEUROLOGIC EXAM: Alert and oriented x 3. Speech normal. Follows commands. PSYCHIATRIC: Mood normal. SKIN: No rash or lesions. Results - Labs 10/04/18 13:25 10/04/18 13:25 Abnormal lab results Lactic Acid 2.6 mmol/L (0.5-2.2) H 10/04/18 13:25 Diabetes panel 10/04/18 Range/Units 13:25 Sodium 138 (136-145) mEq/L Potassium 4.2 (3.5-5.1) mEq/L Chloride 102 (98-107) mEq/L Carbon Dioxide 29 (23-29) mEq/L BUN 13 (6-20) mg/dL Creatinine 0.94 (0.70-1.30) mg/dL Glucose 103 (70-105) mg/dL Calcium 9.4 (8.6-10.3) mg/dL Calcium panel 10/04/18 Range/Units 13:25 Calcium 9.4 (8.6-10.3) mg/dL Pituitary panel 10/04/18 Range/Units 13:25 Sodium 138 (136-145) mEq/L Potassium 4.2 (3.5-5.1) mEq/L Chloride 102 (98-107) mEq/L Carbon Dioxide 29 (23-29) mEq/L BUN 13 (6-20) mg/dL Creatinine 0.94 (0.70-1.30) mg/dL Glucose 103 (70-105) mg/dL Calcium 9.4 (8.6-10.3) mg/dL Adrenal panel 10/04/18 Range/Units 13:25 Sodium 138 (136-145) mEq/L Potassium 4.2 (3.5-5.1) mEq/L Chloride 102 (98-107) mEq/L Carbon Dioxide 29 (23-29) mEq/L BUN 13 (6-20) mg/dL Creatinine 0.94 (0.70-1.30) mg/dL Glucose 103 (70-105) mg/dL Calcium 9.4 (8.6-10.3) mg/dL All other labs normal. - Imaging CT scan - abdomen: report reviewed, image reviewed <Gin Brian - Last Filed: 10/04/18 17:40> Date of Encounter: 10/04/18 Time of Encounter: 16:30 Assessment and Plan (1) Perineal abscess Current Visit: Yes Status: Acute The assessment and plan as outlined above was discussed with the patient and/or family members who expressed understanding and agreement. All questions were answered. discussed with patient CT, labs, physical exam findings will plan ID perineum abscess in OR, risks and benefits discussed and he wishes to proceed npo ivf hydration prn pain control antibiotics diet ok after I/D trend CBC (2) Chronic pain Current Visit: Yes Status: Chronic The assessment and plan as outlined above was discussed with the patient and/or family members who expressed understanding and agreement. All questions were answered. Qualifiers: Chronic pain type: other chronic pain Qualified Code(s): G89.29 - Other chronic pain (3) Tobacco abuse Current Visit: Yes Status: Chronic The assessment and plan as outlined above was discussed with the patient and/or family members who expressed understanding and agreement. All questions were answered. ok nicotine patch if needed History of Present Illness HPI: Mr. Cardenas is a 43 year old male who has had I/D perineum abscesses 4 times previously. Always done in ED. He started having pain at his perineum for several days. Pain is focal and getting worse with time, sharp, no radiation. No drainage. Very tender. No fevers, chills, or night sweats. He presented to ED for pain. CT was done showing perineum fluid collection/abscess. He has chronic back pain and takes 15 mg oxycodone TID Past Med Surg Social Fam HX - Past Medical History Source: patient Medical history: other (chronic back pain, perineum abscesses x4) Psychiatric history: depression - Past Surgical History Surgical History: appendectomy, other (L1-s1 fusion) - Social History Smoking Status: Current every day smoker Smokeless Tobacco Status: No Current living situation: Home - Independent Review of Systems All systems PM: reviewed and no additional remarkable complaints except as stated All systems PM: The remainder of the systems were reviewed and are negative General Surgery Exam Initial Vital Signs Temp Pulse Resp BP Pulse Ox 98.0 F 96 18 130/88 94 10/04/18 12:20 10/04/18 12:20 10/04/18 12:20 10/04/18 12:20 10/04/18 12:20 - General physical appearance well developed, no distress, moderate pain - Eyes PERRL, normal ocular movement - ENT normal mucosa, normocephalic - Neck trachea midline - Respiratory normal expansion, clear to auscultation - Cardiovascular Cardiovascular exam: Present: RRR - Genitourinary Present: normal penis with no external lesions, other (perineum induration and abscess, tender, erythematous, no drainage) - Integumentary Integumentary general surgery: Present: warm and dry, no abnormal pigmentation - Neurologic Present: CN 2-12 grossly intact - Musculoskeletal Present: normal gait, normal posture - Psychiatric Psychiatric general surgery: Present: A&Ox3, speech is normal Results - Labs 10/04/18 13:25 10/04/18 13:25 Abnormal lab results Lactic Acid 2.6 mmol/L (0.5-2.2) H 10/04/18 13:25 Diabetes panel 10/04/18 Range/Units 13:25 Sodium 138 (136-145) mEq/L Potassium 4.2 (3.5-5.1) mEq/L Chloride 102 (98-107) mEq/L Carbon Dioxide 29 (23-29) mEq/L BUN 13 (6-20) mg/dL Creatinine 0.94 (0.70-1.30) mg/dL Glucose 103 (70-105) mg/dL Calcium 9.4 (8.6-10.3) mg/dL Calcium panel 10/04/18 Range/Units 13:25 Calcium 9.4 (8.6-10.3) mg/dL Pituitary panel 10/04/18 Range/Units 13:25 Sodium 138 (136-145) mEq/L Potassium 4.2 (3.5-5.1) mEq/L Chloride 102 (98-107) mEq/L Carbon Dioxide 29 (23-29) mEq/L BUN 13 (6-20) mg/dL Creatinine 0.94 (0.70-1.30) mg/dL Glucose 103 (70-105) mg/dL Calcium 9.4 (8.6-10.3) mg/dL Adrenal panel 10/04/18 Range/Units 13:25 Sodium 138 (136-145) mEq/L Potassium 4.2 (3.5-5.1) mEq/L Chloride 102 (98-107) mEq/L Carbon Dioxide 29 (23-29) mEq/L BUN 13 (6-20) mg/dL Creatinine 0.94 (0.70-1.30) mg/dL Glucose 103 (70-105) mg/dL Calcium 9.4 (8.6-10.3) mg/dL All other labs normal. - Imaging CT scan - pelvis: report reviewed, image reviewed - Attending Attestation I examined this patient and my medical decision-making was reviewed with the Resident Physician. I agree with the documented findings, disposition and treatment plan as described except to the extent set forth below.
[2018-10-04] MEDS ORDERED: Lidocaine Jelly 6ml 1 APPL/6 ML JEL.PF.APP ONE (17:21)
--- NOTE | 2018-10-04 17:22 | Anesthesia Evaluation PreOp ---
Date of Encounter: 10/04/18 Time of Encounter: 17:19 - Past History Planned Operation: I & D Perianal Abscess Cardiac History: Denies any Significant Hx Pulmonary History: Smoker (15 years) STORY READER History: Other (chronic back pain) Other Medical History: Denies Any Significant HX Anesthesia History: No Prior Anesthetic Complications, Past Anesthesia Alcohol Use: rarely Drug use: none Medications and Allergies OxyCODONE/APAP 5/325 [Percocet 5/325 MG] 1 each PO Q6HR PRN #12 tablet 09/01/17 [Rx] Adhesive Tape [Paper Tape] 1 each TP AD #1 tape 09/03/17 [Rx] Gauze Bandage [Gauze] 4 each TP AD #120 bandage 09/03/17 [Rx] Polyhexam Biguan/Gauze Bandage [Curity Amd Packing Strips] 1 each TP DAILY #30 strip 09/03/17 [Rx] Acetaminophen [Tylenol] 650 mg PO Q6HR PRN tablet 09/05/17 [Rx] Ibuprofen [Motrin] 600 mg PO Q6HR PRN tablet 09/05/17 [Rx] Sulfamethoxazole/Trimeth DS [Bactrim DS] 1 each PO BID #14 tablet 09/05/17 [Rx] Oxycodone HCl/Acetaminophen [Percocet 5-325 mg Tablet] 1 each PO Q4-6H PRN #14 tablet 09/06/17 [Rx] Doxycycline 100 mg PO BID #20 capsule 10/06/17 [Rx] OxyCODONE/APAP 5/325 [Percocet 5/325 MG] 1 each PO Q6HR PRN 3 Days #12 tablet 10/06/17 [Rx] Sulfamethoxazole/Trimeth DS [Bactrim DS] 1 each PO BID #20 tablet 10/06/17 [Rx] Allergy/AdvReac Type Severity Reaction Status Date / Time morphine Allergy Hives Verified 08/28/18 19:12 fentanyl AdvReac Nausea Verified 08/28/18 19:12 - Meds/Allergy Pre-op Review Medications Reviewed: Yes Allergies Reviewed: Yes Beta Blockers on Current Med List: No Anesthesia Results - Labs 10/04/18 13:25 10/04/18 13:25 - Imaging EKG: report reviewed (08/28/2018 SINUS RHYTHM POSSIBLE RIGHT VENTRICULAR C ONDUCTION DELAY) Anesthesia Exam Vital Signs/O2 Sat, Most Current Temp Pulse Resp BP Pulse Ox 98.0 F 87 16 114/58 96 10/04/18 12:20 10/04/18 16:00 10/04/18 16:00 10/04/18 16:00 10/04/18 16:00 Height: 6'9''/2.06 m Weight: 328 lbs/149 kg NPO (# of Hours): 8 Pain Scale: 5 Pain Scale Used: Numeric (1 - 10) - HEENT Pupil (Motor): EOMI Mallampati: II Teeth: Normal, Missing Denture Type: Upper: Complete, Lower: Partial Oral Opening: Greater than 3 - STORY READER LOC: Oriented STORY READER Motor: Normal RUE, Normal LUE, Normal RLE, Normal LLE, Normal Face STORY READER Sensory: Normal: RUE, LUE, RLE, LLE, Face - Cardiac Rhythm: Regular Murmur: None - Pulmonary Breath Sounds: bilateral Clear Respiratory Effort: Symmetrical Anesthesia Assess/Plan ASA Score: 2 Level of consciousness: Cooperative, Oriented, Tranquil Anesthetic Plan: General Monitoring Plan: Standard Monitors Recovery Plan: PACU
[2018-10-04] MEDS ORDERED: *HR* Propofol 200 MG/20 ML VIAL IVP ONE ×2 (17:25→17:28)
[2018-10-04] MEDS ORDERED: *HR* Midazolam HCl 2 MG/2 ML VIAL ONE (17:25)
[2018-10-04] MEDS ORDERED: *HR* Succinylcholine 200 MG/10 ML VIAL IVP ONE (17:26)
[2018-10-04] MEDS ORDERED: Dexamethasone 4 MG/ML VIAL ONE (17:26)
[2018-10-04] MEDS ORDERED: Lidocaine -MPF 2% 2 ML VIAL ONE (17:26)
[2018-10-04] MEDS ORDERED: Ondansetron 4 MG/2 ML VIAL ONE (17:26)
[2018-10-04] MEDS ORDERED: Lidocaine -MPF 4% 5 ML AMPUL ONE (17:28)
[2018-10-04] MEDS ORDERED: *HR* Cisatracurium 10 MG/5 ML VIAL IV ONE (17:30)
[2018-10-04] MEDS ORDERED: Albuterol 2.5 MG/3 ML NEBULIZER IH ONE (17:33)
[2018-10-04] MEDS ORDERED: Albuterol 2.5 MG/3 ML NEBULIZER ONE (17:35)
[2018-10-04] MEDS ORDERED: *HR* HYDROMORPHONE 2 MG/ML VIAL ONE (17:45)
--- NOTE | 2018-10-04 18:30 | Operative Note ---
Date of procedure: 10/04/18 Pre-op diagnosis: perineum abscess Post-op diagnosis: other (perineum infected hematoma) Procedure: Incision and drainage infected perineum hematoma Complications: none immediate Anesthesia: SARAHA Surgeon: Gin Brian Was there an bankruptcy legal assistant present: No Estimated blood loss (cc): 2 Specimen: aerobic/anaerobic cultures Condition: stable Disposition: PACU Procedure in Detail: Patient was brought to the operating suite on the transport cart. Sign in was performed and everyone is in agreement. Anesthesia was induced and patient was endotracheally intubated by anesthesia without incident. Patient was then placed prone on the operating table with all pressure points padded by foam and pillows. The bed was flexed. TinCoBen and 2 inch silk tape were applied to the bilateral buttocks for exposure and retraction. The perineum was prepped and draped in the usual sterile fashion with Betadine. Timeout was performed again everyone was in agreement. An 11 blade was used to make a elliptical incision through the skin into the subcutaneous tissue. Infected hematoma resulted from the wound and aerobic and anaerobic cultures were obtained. Given that this is the fourth recurrence of an abscess or infection in this perineal area the wound was debrided with curettes. The wound was irrigated with sterile saline. The abscess cavity was packed with half-inch iodoform packing, cover with 4 x 4 gauze and secured with Medipore tape. The patient tolerated the procedure well. He was then placed supine on the hospital bed where he was awoken by anesthesia and extubated in the OR without incident. He was taken to PACU in stable condition.
--- NOTE | 2018-10-04 19:01 | Anesthesia Evaluation Post Op ---
Date of Encounter: 10/04/18 Time of Encounter: 19:00 - Vital Signs Vital Signs: Vital Signs/O2 Sat, Most Current Temp Pulse Resp BP Pulse Ox 98.0 F 85 12 120/77 97 10/04/18 18:32 10/04/18 18:52 10/04/18 18:52 10/04/18 18:52 10/04/18 18:52 - Lungs Lungs: Clear Ascult./Percussion - Airway Airway: Non-obstructed - Cardiovascular Regular Rate - Mental Status Mental Status: Alert & Oriented, Answers Appropriately - Pain Pain Scale: 6 Pain Scale used: Numeric (1 - 10) - Nausea Vomiting Nausea Vomiting: Not Present - Hydration Hydration: Ice chips, Has not voided - Discharge PostOp Status: Transfer Patient to floor (patient reports pain is tolerable and wishes to go to his room.)
[2018-10-04] MEDS ORDERED: 0.9 % Sodium Chloride 1,000 ML IVC SCH (19:34)
[2018-10-04] MEDS ORDERED: OXYCODONE Oral CONC 10 MG/0.5 ML ORAL.SYG SL PRN (19:34)
[2018-10-04] MEDS ORDERED: Naloxone 0.4 MG/ML INJ IVP PRN (19:34)
[2018-10-04] MEDS ORDERED: *HR* Promethazine 25 MG/ML VIAL IVP PRN (19:34)
[2018-10-04] MEDS ORDERED: Ondansetron 4 MG/2 ML VIAL IVP PRN (19:34)
[2018-10-04] MEDS ORDERED: *HR* Metoprolol 5 MG/5 ML VIAL IVP PRN (19:34)
[2018-10-04] MEDS: Acetaminophen IV 1,000 MG/100 ML INFUS..BTL IVPB SCH (21:37)
[2018-10-04] MEDS: *HR* OxyCODONE Immed Rel 15 MG TABLET PO SCH (23:14)
[2018-10-04] MEDS: Gabapentin 400 MG CAPSULE PO SCH (23:14)
[2018-10-05] MEDS: Acetaminophen IV 1,000 MG/100 ML INFUS..BTL IVPB SCH ×2 (02:02→08:26)
[2018-10-05 05:35] LABS: Basophils % 0.1 %; Eosinophils % 0.1 %; Hematocrit 43.2 % (37.5-50.1); Hemoglobin 14.5 g/dL (12.9-16.9); Immature Granulocytes % 0.3 % (0-4); Lymphocytes % 6.8 %; Mean Corpuscular HGB Conc 33.6 g/dL (31.6-35.5); Mean Corpuscular Hemoglobin 29.4 pg (28.0-33.3); Mean Corpuscular Volume 87.6 fL (83.0-100.0); Mean Platelet Volume 10.1 fL (9.4-12.4); Monocytes # 0.3 K/mcL (0.0-1.3); Monocytes % 2.3 %; Platelet Count 384 K/mcL (140-400); Red Blood Count 4.93 M/mcL (4.19-5.50); Red Cell Distribution Width 13.7 % (11.5-14.5); Segmented Neutrophils % 90.4 %
[2018-10-05 06:30] VITALS: BP 114/64
[2018-10-05] MEDS: Gabapentin 400 MG CAPSULE PO SCH (08:27)
[2018-10-05] MEDS: *HR* OxyCODONE Immed Rel 15 MG TABLET PO SCH (08:27)
[2018-10-05] MEDS ORDERED: Pantoprazole 40 MG VIAL IVP SCH (09:00)
--- NOTE | 2018-10-05 09:31 | Discharge Summary ---
Orders not resulted at time of discharge: Pending orders 10/04/18 18:10 Culture,Anaerobic [RM] Routine Culture,Wound [RM] Routine Date of Encounter: 10/05/18 Time of Encounter: 09:38 - Discharge Diagnosis (1) Infection of hematoma of wound Priority: Primary Status: Acute Comments: s/p I&D with notable infected hematoma. Per operative report, 11 blade with used to make an elliptical incision. Cultures remain pending. General Surgery Exam Initial Vital Signs Temp Pulse Resp BP Pulse Ox 98.0 F 96 18 130/88 94 10/04/18 12:20 10/04/18 12:20 10/04/18 12:20 10/04/18 12:20 10/04/18 12:20 Vital Signs Temp Pulse Resp BP Pulse Ox 10/05/18 06:26 98.3 F 73 15 114/64 93 10/05/18 03:55 98 F 97 14 114/65 99 10/04/18 23:00 98.8 F 65 14 128/70 97 10/04/18 19:44 98.5 F 88 15 130/80 95 10/04/18 19:02 97.9 F 83 14 124/73 93 10/04/18 18:52 85 12 120/77 97 10/04/18 18:42 86 16 138/66 93 10/04/18 18:37 90 16 121/77 92 10/04/18 18:32 98.0 F 94 16 129/80 95 10/04/18 17:34 18 95 10/04/18 17:29 16 134/57 10/04/18 16:00 87 16 114/58 96 10/04/18 14:51 75 16 137/82 97 10/04/18 13:17 84 16 129/83 95 10/04/18 12:20 98.0 F 96 18 130/88 94 Intake and Output 10/04/18 10/05/18 10/05/18 23:59 07:59 15:59 Intake Total 820 / 820 580 / 580 Output Total 0 / 0 0 / 0 Balance 820 / 820 580 / 580 Intake: IV Fluids 100 / 100 100 / 100 Ofirmev 1,000 mg/100 ml 1,000 100 / 100 100 / 100 mg In 100 ml @ 400 mls/hr IVPB Q6H [facility] Rx#:[id number] Oral 720 / 720 480 / 480 Output: Urine 0 / 0 Estimated Blood Loss 0 / 0 Other: # Voids 2 2 # Bowel Movements 0 0 Weight 149.8 kg Patient Weight 10/05/18 23:59 Weight 149.8 kg VITAL SIGNS: Reviewed. See [facility] GENERAL: In no apparent distress. HEENT: Normocephalic, atraumatic, pupils are equal and reactive, extraocular motions intact, oropharynx is pink and moist, there is no neck adenopathy or JVD noted. CHEST/RESPIRATORY: The thorax is free from signs of trauma. Lung sounds: clear to auscultation, normal respiratory effort CARDIAC: Regular rate and rhythm. Normal S1 and S2, without murmurs, gallops, or rubs. VASCULAR: No Edema. 2+ peripheral pulses. ABDOMEN: soft, active bowel sounds perianal INCISION: packing removed. Elliptical incision noted. There is no surrounding cellulitis or erythema remaining. MUSCULOSKELETAL: Good range of motion of all major joints. Extremities without clubbing, cyanosis or edema. NEUROLOGIC EXAM: Alert and oriented x 3. Speech normal. Follows commands. PSYCHIATRIC: Mood normal. SKIN: No rash or lesions. - Hospital Course Hospital course: Mr. Cardenas is a 43 year old male who presented on 10/04/2017 with a perineum abscess. This is been a recurrent issue for the patient. He underwent an incision and drainage (elliptical incision) on 10/04/[address] Brian with notable postop diagnosis of infected perineum hematoma. Patient denies trauma. Cultures remain pending. He states his pain is controlled and he would like to go home. He is afebrile. His WBC is increased but this is likely reactionary. We will begin discharge planning to home per his request with a follow-up in the office in 7 to 10 days. He is advised due to the nature of his incision he will not need to continue packing that is advised to place a maxi pad for drainage control. He is also recommended to take warm showers or sitz bath 3 times daily and after defecation. - Time Spent with Patient Total time spent providing and/or coordinating discharge services: - Discharge Medications Prescriptions: Docusate Sodium [Colace] 100 mg PO BID PRN #30 capsule PRN Reason: Contstipation Sulfamethoxazole/Trimeth DS [Bactrim DS] 1 each PO BID 10 Days #20 tablet Home Medications: Acetaminophen [Tylenol] 650 mg PO Q6HR PRN tablet 09/05/17 [Rx] Ibuprofen [Motrin] 600 mg PO Q6HR PRN tablet 09/05/17 [Rx] Gabapentin [Neurontin] 800 mg PO TID 10/04/18 [History] Oxycodone HCl [Roxybond] 15 mg PO TID 10/04/18 [History] Docusate Sodium [Colace] 100 mg PO BID PRN #30 capsule 10/05/18 [Rx] Sulfamethoxazole/Trimeth DS [Bactrim DS] 1 each PO BID 10 Days #20 tablet 10/05/18 [Rx] Allergies/Adverse Reactions: Allergy/AdvReac Type Severity Reaction Status Date / Time morphine Allergy Hives Verified 08/28/18 19:12 fentanyl AdvReac Nausea Verified 08/28/18 19:12 Date of admission: 10/04/18 17:30 Primary care physician: Mindy Hernandes Discharging clinician: Beverly Ramesh Anticipated date of discharge: 10/05/18 Labs on day of discharge: Labs from last 24 hours 10/05/18 10/04/18 10/04/18 05:11 13:25 13:25 WBC 14.3 H RBC 4.93 Hgb 14.5 Hct 43.2 MCV 87.6 MCH 29.4 MCHC 33.6 RDW 13.7 Plt Count 384 MPV 10.1 Immature Gran % 0.3 Seg Neutrophils % 90.4 Lymphocytes % 6.8 Monocytes % 2.3 Eosinophils % 0.1 Basophils % 0.1 Neutrophils # 13.0 H Lymphocytes # 1.0 Monocytes # 0.3 Eosinophils # 0.0 Basophils # 0.0 Sodium 138 Potassium 4.2 Chloride 102 Carbon Dioxide 29 BUN 13 Creatinine 0.94 Est GFR ( Amer) > 60 Est GFR (Non-Af Amer) > 60 BUN/Creatinine Ratio 14 Glucose 103 Calculated Osmolality 286 Lactic Acid 2.6 H Calcium 9.4 10/04/18 13:25 WBC 9.6 RBC 5.06 Hgb 14.9 Hct 45.3 MCV 89.5 MCH 29.4 MCHC 32.9 RDW 13.8 Plt Count 347 MPV 10.0 Immature Gran % 0.2 Seg Neutrophils % 67.9 Lymphocytes % 23.3 Monocytes % 5.3 Eosinophils % 3.0 Basophils % 0.3 Neutrophils # 6.5 Lymphocytes # 2.3 Monocytes # 0.5 Eosinophils # 0.3 Basophils # 0.0 Sodium Potassium Chloride Carbon Dioxide BUN Creatinine Est GFR ( Amer) Est GFR (Non-Af Amer) BUN/Creatinine Ratio Glucose Calculated Osmolality Lactic Acid Calcium Preliminary micro results at discharge 10/04/18 18:10 Wound Culture - Preliminary Other-Specify in Comments Culture is incubating. 10/04/18 18:10 Anaerobic Culture - Preliminary Other-Specify in Comments Culture is incubating. - Impressions ITS Impressions Abdomen/Pelvis CT 10/04/18 13:04 IMPRESSION: 1. 5.0 x 1.6 cm elongated fluid collection along the left gluteal cleft suspicious for abscess versus pilonidal cyst. Similar appearing findings have been present dating back to 11/24/2015 but have increased in size since then. 2. Stable 3.9 cm linear soft tissue tract extending from the left perineum into the left ischioanal fat. This is stable dating back to 11/24/2015. 3. Hepatic steatosis. 4. No other acute abdominal or pelvic abnormality within the abdomen or pelvis. D/ / 10/04/2018 15:43:02 Dax[facility] H[facility]t [facility] Interpreting Provider: Daxa Hoyt MD - Patient Status Disposition: Home, Self-Care Condition: Fair Functional capacity at discharge: independent ambulation Overall status at discharge: patient is progressing back to baseline - Discharge Instructions Instructions: Abscess (GEN) Follow Up With: Mindy Hernandes [Primary Care Provider] - Gin Brian MD [Partnered Physician] - 10/14/18 11:00 am Additional Instructions: Keep the area clean and dry. Sitz baths or warm showers three times daily and after bowel movements Take antibiotics as directed A Maxi-pad typically works best to catch drainage in this area - Diet and Activity Activity: increase activity as tolerated Diet: advance to your usual diet
[2018-10-05] MEDS ORDERED: Piperacillin/Tazobactam 3.375 GM in 0.9 % Sodium Chloride Mini Bag 100 ML IVPB SCH (21:00)
== END 2018-10-05 10:35 | disposition home or self-care (01) ==
LOC: 3ANU 12:15 → EMEROOARM 12:15 → 3ANU 17:36
PROVIDERS: ADMIT Surgery; ATTEND Surgery

== ENCOUNTER 2019-04-14 13:27 | Observation (INO) ==
--- NOTE | 2019-04-14 14:11 | Emergency Department Note ---
Disposition Clinical Impression: Abscess of skin or subcutaneous tissue Qualifiers: Site of cutaneous abscess: buttock Qualified Code(s): L02.31 - Cutaneous abscess of buttock Disposition: Admitted As Inpatient Condition: Fair Time of Disposition: 17:30 General Adult HPI - General Chief complaint: ED Skin/Abscess/Foreign Body Stated complaint: "cyst in groin" Time Seen by Provider: 04/14/19 13:57 Source: patient Limitations: no limitations Nursing Notes Reviewed: Yes Vital Signs Reviewed: Yes - History of Present Illness HPI Narrative: Patient is a 43-year-old male who is presenting with abscess to the scrotal region. Patient with known history of abscess to the similar location with possible thrombosis one year ago requiring surgical intervention by Dr. Sorensen. Patient states over the past few days he has been having intermittent pain to this area, he states over the past day and a half this pain has been constant, he stated very tender to touch and he is now unable to sit comfortably. He denies any fevers or chills. He has difficulty with defecation secondary to pain, however has not noticed any purulence or drainage from this region. He h as no difficulty with urination. He denies any further abdominal pain. Pain Scale: 10 - Related Data Home Medications Medication Instructions Recorded Confirmed Gabapentin [Neurontin] 800 mg PO TID 10/04/18 04/14/19 Oxycodone HCl [Roxybond] 15 mg PO TID 10/04/18 04/14/19 Acetaminophen [Tylenol] 650 mg PO Q6HR PRN 04/14/19 04/14/19 Oxycodone HCl 1 tab PO HS 04/14/19 04/14/19 Previous Rx's Medication Instructions Recorded Ibuprofen [Motrin] 600 mg PO Q6HR PRN tablet 09/05/17 Allergies Allergy/AdvReac Type Severity Reaction Status Date / Time morphine Allergy Hives Verified 08/28/18 19:12 fentanyl AdvReac Nausea Verified 08/28/18 19:12 All systems ED: reviewed and negative except as stated. Review of Systems: As Per HPI Constitutional: Denies: fever, chills ENT ED: Denies: congestion Cardiovascular: Denies: chest pain, palpitations, dyspnea on exertion Respiratory: Denies: cough Gastrointestinal: Denies: abdominal pain, nausea, vomiting Genitourinary: Denies: urgency, dysuria, frequency Musculoskeletal: Denies: back pain Integumentary: Reports: lesions. Denies: rash Neurological: Denies: headache, weakness, confusion Endocrine: Denies: fatigue Past Medical History - Past Medical History Medical history: Reports: non-contributory Surgical history: Reports: no surgical history Psychiatric history: Reports: depression - Social History Smoking Status: Current every day smoker Smokeless Tobacco Status: No Alcohol use: Reports: rarely Drug use: Reports: none Physical Exam General: Conversant. No apparent distress. Follow commands. Appears stated age. Neck: No JVD. Trachea midline. Neck supple. Eyes: PERRL. No scleral icterus. HENT: Normocephalic and atraumatic. Moist mucus membranes. Cardiovascular: Regular rate and rhythm. Normal S1 and S2. No murmurs appreciated. Normal capillary refill. Extremities well perfused with 2+ distal pulses bilaterally. No edema. Pulmonary: Normal and equal breath sounds bilaterally, anteriorly and posteriorly. No wheezes, rales, or rhonchi. Not in respiratory distress. Speaks in full sentences. Abdomen: Soft, nondistended, without tenderness. No bruits or masses. No guarding or rebound. Neuro: Alert and oriented x3. No slurred speech. No focal deficits noted. Skin: No rashes noted on visualized skin. Musculoskeletal: No bony abnormalities visualized. Moves all extremities. Psych: Normal mood. Pleasant. Makes appropriate eye contact. - General Limitations: no limitations General appearance: alert, in no apparent distress - Rectal Exam Appliance Service Representative present during exam: Yes Rectal exam: Present: normal inspection, tenderness (Tenderness to palpation throughout the superior rectal region extending into the inferior scrotal region, there is erythema with induration, no fluctuance is palpated, does not appear incarcerated, there is no crepitus) Course Vital Signs Temperature 97.5 F L 04/14/19 13:41 Pulse Rate 88 04/14/19 13:41 Respiratory Rate 18 04/14/19 13:41 Blood Pressure 143/88 04/14/19 13:41 O2 Sat by Pulse Oximetry 97 04/14/19 13:41 Temperature 97.5 F L 04/14/19 13:41 Pulse Rate 71 04/14/19 16:44 Respiratory Rate 18 04/14/19 16:44 Blood Pressure 126/72 04/14/19 16:44 O2 Sat by Pulse Oximetry 99 04/14/19 16:44 Oxygen Delivery Oxygen Delivery Room Air Medical Decision Making - MDM Narrative Medical decision making narrative: Patient is a 43-year-old male presenting with concern for abscess to the gluteal region. On arrival, patient is in no acute distress otherwise and pain. Vitals otherwise within normal limits. Patient was given fentanyl on arrival for pain control as well as antinausea medicine. On examination he does have induration to the superior region of the perineal region extending up to the inferior region of the scrotum. No fluctuance is felt. There is erythema and tenderness to palpation. CT was done which does show localized fluid collection at this region. Given the patient has required surgical intervention to this area before, general surgery was consult, Dr. Alvarez. Dr. Alvarez requested the patient be admitted to his service for most likely surgical intervention tomorrow, request Zosyn to be started. Patient otherwise agrees disposition of admission at this time. - Medical Records Medical records reviewed: Yes I reviewed the patient's medical records. - Lab Data Lab results reviewed: Yes I reviewed the patient's lab results. Result diagrams: 04/14/19 14:51 04/14/19 14:50 Lab Results 04/14/19 04/14/19 04/14/19 Range/Units 14:50 14:50 14:50 WBC (4.3-11.1) K/mcL RBC (4.19-5.50) M/mcL Hgb (12.9-16.9) g/dL Hct (37.5-50.1) % MCV (83.0-100.0) fL MCH (28.0-33.3) pg MCHC (31.6-35.5) g/dL RDW (11.5-14.5) % Plt Count (140-400) K/mcL MPV (9.4-12.4) fL Immature Gran % (0-4) % Seg Neutrophils % % Lymphocytes % % Monocytes % % Eosinophils % % Basophils % % Neutrophils # (1.6-8.9) K/mcL Lymphocytes # (0.6-4.6) K/mcL Monocytes # (0.0-1.3) K/mcL Eosinophils # (0.0-0.6) K/mcL Basophils # (0.0-0.2) K/mcL PT 11.9 (9.4-12.1) Seconds INR 1.0 APTT 30.5 (26.0-36.0) Seconds Sodium 137 (136-145) mEq/L Potassium 3.9 (3.5-5.1) mEq/L Chloride 103 (98-107) mEq/L Carbon Dioxide 29 (23-29) mEq/L BUN 12 (6-20) mg/dL Creatinine 0.85 (0.70-1.30) mg/dL Est GFR ( Amer) > 60 (> 60) Est GFR (Non-Af Amer) > 60 (> 60) BUN/Creatinine Ratio 14 (6-26) Glucose 102 (70-105) mg/dL Calculated Osmolality 284 (280-300) Lactic Acid 1.0 (0.5-2.2) mmol/L Calcium 9.1 (8.6-10.3) mg/dL Lipase 9 L (11-82) Units/L // Range/Units 14:51 WBC 8.7 (4.3-11.1) K/mcL RBC 4.64 (4.19-5.50) M/mcL Hgb 13.8 (12.9-16.9) g/dL Hct 40.9 (37.5-50.1) % MCV 88.1 (83.0-100.0) fL MCH 29.7 (28.0-33.3) pg MCHC 33.7 (31.6-35.5) g/dL RDW 14.0 (11.5-14.5) % Plt Count 296 (140-400) K/mcL MPV 9.9 (9.4-12.4) fL Immature Gran % 0.3 (0-4) % Seg Neutrophils % 58.9 % Lymphocytes % 30.3 % Monocytes % 7.5 % Eosinophils % 2.8 % Basophils % 0.2 % Neutrophils # 5.1 (1.6-8.9) K/mcL Lymphocytes # 2.6 (0.6-4.6) K/mcL Monocytes # 0.7 (0.0-1.3) K/mcL Eosinophils # 0.2 (0.0-0.6) K/mcL Basophils # 0.0 (0.0-0.2) K/mcL PT (9.4-12.1) Seconds INR APTT (26.0-36.0) Seconds Sodium (136-145) mEq/L Potassium (3.5-5.1) mEq/L Chloride (98-107) mEq/L Carbon Dioxide (23-29) mEq/L BUN (6-20) mg/dL Creatinine (0.70-1.30) mg/dL Est GFR ( Amer) (> 60) Est GFR (Non-Af Amer) (> 60) BUN/Creatinine Ratio (6-26) Glucose (70-105) mg/dL Calculated Osmolality (280-300) Lactic Acid (0.5-2.2) mmol/L Calcium (8.6-10.3) mg/dL Lipase (11-82) Units/L - Radiology Data Radiology results reviewed: Yes I reviewed the patient's radiology results. Abdomen/Pelvis CT 04/14/19 14:44 IMPRESSION: No evidence for acute intra-abdominal or intrapelvic pathology. No bowel obstruction or inflammation. No free intraperitoneal air or fluid. No evidence for urinary obstruction. Left gluteal cleft fluid collection has decreased in size as compared to previous study. Stable adjacent soft tissue tract. D/ / Amilcar Hope MD / Amilcar Hope MD Interpreting Provider: Amilcar Hope MD Attestation Statement - Attestation Attestation: I, John Feng, examined this patient and my medical decision-making was reviewed with the ORAL HYGIENIST/PA/Advanced Practice Nurse/Resident Physician. I agree with the documented findings, disposition and treatment plan as described except to the extent set forth below. 43-year-old male with pain and tenderness to his perineal area which is been worsening over the past few days. Patient has a history of previous abscess in that area which required surgery in the past. Patient denies fever, chills, nausea, vomiting, diarrhea. CT of the pelvis shows a collection of fluid which is likely an abscess. Patient was updated regarding imaging results. We spoke with the general surgeon, Dr. Alvarez, who recommended antibiotics emergency d epartment and admission for likely incision and drainage.
[2019-04-14] MEDS ORDERED: Isovue-370 500 ML BOTTLE IVP ONE (14:43)
[2019-04-14] MEDS ORDERED: *HR* FentaNYL (PF) 100 MCG/2 ML VIAL IVP ONE (14:45)
[2019-04-14] MEDS ORDERED: Ondansetron 4 MG/2 ML VIAL IVP ONE (14:45)
[2019-04-14 15:02] LABS: Basophils % 0.2 %; Eosinophils # 0.2 K/mcL (0.0-0.6); Eosinophils % 2.8 %; Hematocrit 40.9 % (37.5-50.1); Hemoglobin 13.8 g/dL (12.9-16.9); Immature Granulocytes % 0.3 % (0-4); Lymphocytes # 2.6 K/mcL (0.6-4.6); Lymphocytes % 30.3 %; Mean Corpuscular HGB Conc 33.7 g/dL (31.6-35.5); Mean Corpuscular Hemoglobin 29.7 pg (28.0-33.3); Mean Corpuscular Volume 88.1 fL (83.0-100.0); Mean Platelet Volume 9.9 fL (9.4-12.4); Monocytes # 0.7 K/mcL (0.0-1.3); Monocytes % 7.5 %; Neutrophils # 5.1 K/mcL (1.6-8.9); Platelet Count 296 K/mcL (140-400); Red Blood Count 4.64 M/mcL (4.19-5.50); Segmented Neutrophils % 58.9 %; White Blood Count 8.7 K/mcL (4.3-11.1)
[2019-04-14] MEDS ORDERED: 0.9 % Sodium Chloride 1,000 ML IVC ONE (15:12)
[2019-04-14 15:14] LABS: Prothrombin Time 11.9 Seconds (9.4-12.1)
[2019-04-14 15:17] LABS: Activated Partial Thrombo Time 30.5 Seconds (26.0-36.0)
[2019-04-14 15:20] LABS: BUN/Creatinine Ratio 14 (6-26); Blood Urea Nitrogen 12 mg/dL (6-20); Calcium 9.1 mg/dL (8.6-10.3); Carbon Dioxide 29 mEq/L (23-29); Chloride 103 mEq/L (98-107); Glucose 102 mg/dL (70-105); Lipase 9 Units/L (11-82); Osmolality,Calculated 284 (280-300); Potassium 3.9 mEq/L (3.5-5.1); Sodium 137 mEq/L (136-145); eGFR For African Americans > 60 (> 60); eGFR For Non-African Americans > 60 (> 60)
[2019-04-14] MEDS ORDERED: Piperacillin/Tazobactam 3.375 GM in 0.9 % Sodium Chloride Mini Bag 100 ML IVPB ONE (17:26)
[2019-04-14] MEDS ORDERED: Ondansetron 4 MG/2 ML VIAL IVP PRN (17:51)
[2019-04-14] MEDS: 0.9 % Sodium Chloride 1,000 ML IVC SCH (18:41)
--- NOTE | 2019-04-14 19:03 | Acute Care Surgery H&P ---
Date of Encounter: 04/14/19 Time of Encounter: 19:00 Assessment and Plan (1) Perineal abscess, superficial Current Visit: Yes Status: Acute The assessment and plan as outlined above was discussed with the patient and/or family members who expressed understanding and agreement. All questions were answered. I personally reviewed the CT scan images and report which shows a small fluid collection in the area of his tenderness. Was started on IV antibiotics and pain control and we will tentatively schedule tomorrow for an incision and drainage procedure of this area. Discussed with the patient and he agrees with the above plan. History of Present Illness Chief complaint: Perineal pain HPI: Mr. Cardenas is a 43 year old male with a past medical history significant for depression and degenerative disc disease who states that he has been having perianal pain and swelling over the past 3-4 days. He states that he has had this in the past and has had surgery in the past; the most recent incision and drainage procedure occurring early this year by Dr. Brian. He says that he has not had any current drainage and has had some issues with constipation. He normally has a bowel movement 1-2 times per day. He does recall that prior to his last flareup he also had issues with constipation. He denies any rectal bleeding. Past Med Surg Social Fam HX - Past Medical History Medical history: non-contributory Additional medical history: 3 back surgeries Psychiatric history: depression - Past Surgical History Surgical History: no surgical history Additional surgical history: back sx x 3. cyst removed - Social History Smoking Status: Current every day smoker Smokeless Tobacco Status: No Alcohol use: rarely Drug use: none - Family History Father History Unknown: Yes Living Status: Still Living Mother Age: 68 Living Status: Hx Family Cardiac Disorders: Yes (Heart attack) Medications and Allergies Ibuprofen [Motrin] 600 mg PO Q6HR PRN tablet 09/05/17 [Rx] Gabapentin [Neurontin] 800 mg PO TID 10/04/18 [History] Oxycodone HCl [Roxybond] 15 mg PO TID 10/04/18 [History] Acetaminophen [Tylenol] 650 mg PO Q6HR PRN 04/14/19 [History] Oxycodone HCl 1 tab PO HS 04/14/19 [History] Allergy/AdvReac Type Severity Reaction Status Date / Time morphine Allergy Hives Verified 08/28/18 19:12 fentanyl AdvReac Nausea Verified 08/28/18 19:12 Review of Systems All systems PM: reviewed and no additional remarkable complaints except as stated All systems PM: The remainder of the systems were reviewed and are negative General Surgery Exam Initial Vital Signs Temp Pulse Resp BP Pulse Ox 97.5 F L 88 18 143/88 97 04/14/19 13:41 04/14/19 13:41 04/14/19 13:41 04/14/19 13:41 04/14/19 13:41 - Eyes PERRL, normal ocular movement - Respiratory normal expansion, normal respiratory effort, clear to auscultation - Cardiovascular Cardiovascular exam: Present: RRR, no murmurs/rubs/gallops - Abdomen Abdomen general surgery: Present: bowel sounds present, soft, non tender - Rectum Rectum: Present: other (Perineal examination demonstrates a slightly excavated wound that has healed but there is tenderness to palpation. No overlying er ythema. Difficult to appreciate fluctuance due to the tenderness) - Neurologic Present: CN 2-12 grossly intact - Musculoskeletal Present: other (no clubbing, cyanosis, or edema) Results - Labs 04/14/19 14:51 04/14/19 14:50 Abnormal lab results Lipase 9 Units/L (11-82) L 04/14/19 14:50 Diabetes panel 04/14/19 Range/Units 14:50 Sodium 137 (136-145) mEq/L Potassium 3.9 (3.5-5.1) mEq/L Chloride 103 (98-107) mEq/L Carbon Dioxide 29 (23-29) mEq/L BUN 12 (6-20) mg/dL Creatinine 0.85 (0.70-1.30) mg/dL Glucose 102 (70-105) mg/dL Calcium 9.1 (8.6-10.3) mg/dL Calcium panel 04/14/19 Range/Units 14:50 Calcium 9.1 (8.6-10.3) mg/dL Pituitary panel 04/14/19 Range/Units 14:50 Sodium 137 (136-145) mEq/L Potassium 3.9 (3.5-5.1) mEq/L Chloride 103 (98-107) mEq/L Carbon Dioxide 29 (23-29) mEq/L BUN 12 (6-20) mg/dL Creatinine 0.85 (0.70-1.30) mg/dL Glucose 102 (70-105) mg/dL Calcium 9.1 (8.6-10.3) mg/dL Adrenal panel 04/14/19 Range/Units 14:50 Sodium 137 (136-145) mEq/L Potassium 3.9 (3.5-5.1) mEq/L Chloride 103 (98-107) mEq/L Carbon Dioxide 29 (23-29) mEq/L BUN 12 (6-20) mg/dL Creatinine 0.85 (0.70-1.30) mg/dL Glucose 102 (70-105) mg/dL Calcium 9.1 (8.6-10.3) mg/dL All other labs normal. - Imaging CT scan - pelvis: report reviewed, image reviewed (Evidence of fluid collection superficial incised the peritoneal region)
[2019-04-14] MEDS: Gabapentin 400 MG CAPSULE PO SCH (20:10)
[2019-04-15] MEDS: Ketorolac 30 MG/ML VIAL IVP SCH ×3 (00:53→12:16)
[2019-04-15] MEDS: Piperacillin/Tazobactam 3.375 GM in 0.9 % Sodium Chloride Mini Bag 100 ML IVPB SCH ×2 (00:54→08:47)
[2019-04-15] MEDS ORDERED: *HR* Heparin 5,000 UNIT/ML VIAL SQ SCH (06:00)
[2019-04-15] MEDS: 0.9 % Sodium Chloride 1,000 ML IVC SCH (06:29)
--- NOTE | 2019-04-15 07:55 | Acute Care Surgery Event Note ---
Date of Encounter: 04/15/19 Time of Encounter: 07:20 The patient is seen and evaluated on morning rounds with the acute care surgery team. The patient has a recurrent perineal abscess. This may be related to undiagnosed fistula in ano. I discussed the surgical approach including exam under anesthesia and possible unroofing of fistula and excision of the abscess. He understands this and wishes to proceed. We will plan on the operating room later today.
[2019-04-15] MEDS: Gabapentin 400 MG CAPSULE PO SCH (08:46)
[2019-04-15] MEDS ORDERED: Pantoprazole 40 MG VIAL IVP SCH (09:00)
[2019-04-15] MEDS ORDERED: *HR* Midazolam HCl 2 MG/2 ML VIAL ONE ×2 (13:21→14:34)
[2019-04-15] MEDS ORDERED: *HR* FentaNYL (PF) 100 MCG/2 ML VIAL ONE (13:21)
[2019-04-15] MEDS ORDERED: *HR* Propofol 200 MG/20 ML VIAL IVP ONE (13:21)
--- NOTE | 2019-04-15 13:32 | Anesthesia Evaluation PreOp ---
Date of Encounter: 04/15/19 Time of Encounter: 13:30 - Past History Planned Operation: anoscopy, i&d Cardiac History: Denies any Significant Hx Pulmonary History: Smoker PARTS RUNNER History: Other (chronic pain) Other Medical History: Denies Any Significant HX Anesthesia History: No Prior Anesthetic Complications, Past Anesthesia (previous abcess peroneal) Alcohol Use: rarely Drug use: none Medications and Allergies Ibuprofen [Motrin] 600 mg PO Q6HR PRN tablet 09/05/17 [Rx] Gabapentin [Neurontin] 800 mg PO TID 10/04/18 [History] Oxycodone HCl [Roxybond] 15 mg PO TID 10/04/18 [History] Acetaminophen [Tylenol] 650 mg PO Q6HR PRN 04/14/19 [History] Oxycodone HCl 1 tab PO HS 04/14/19 [History] Allergy/AdvReac Type Severity Reaction Status Date / Time morphine Allergy Hives Verified 08/28/18 19:12 fentanyl AdvReac Nausea Verified 08/28/18 19:12 - Meds/Allergy Pre-op Review Medications Reviewed: Yes Allergies Reviewed: Yes Beta Blockers on Current Med List: No Anesthesia Results - Labs 04/14/19 14:51 04/14/19 14:50 - Imaging EKG: report reviewed (NSR conduction delay) Anesthesia Exam Vital Signs/O2 Sat, Most Current Temp Pulse Resp BP Pulse Ox 98.1 F 71 16 115/61 96 04/15/19 11:47 04/15/19 11:47 04/15/19 11:47 04/15/19 11:47 04/15/19 11:47 - HEENT Pupil (Motor): Pupils equal, EOMI Mallampati: II Teeth: Poor dentition Denture Type: Upper: Complete, Lower: Partial - PARTS RUNNER LOC: Oriented PARTS RUNNER Motor: Normal RUE, Normal LUE, Normal RLE, Normal LLE, Normal Face PARTS RUNNER Sensory: Normal: RUE, LUE, RLE, LLE, Face - Cardiac Rhythm: Regular Murmur: None JVD: No - Pulmonary Breath Sounds: bilateral Clear Respiratory Effort: Symmetrical Anesthesia Assess/Plan ASA Score: 2 Level of consciousness: Cooperative, Oriented Anesthetic Plan: General Monitoring Plan: Standard Monitors Recovery Plan: PACU
[2019-04-15] MEDS ORDERED: *HR* HYDROMORPHONE 2 MG/ML VIAL ONE ×2 (14:34→15:05)
[2019-04-15] MEDS ORDERED: Dexamethasone 4 MG/ML VIAL ONE (14:46)
[2019-04-15] MEDS ORDERED: Ondansetron 4 MG/2 ML VIAL ONE (14:47)
[2019-04-15] MEDS ORDERED: Lidocaine -MPF 2% 2 ML VIAL ONE (14:47)
[2019-04-15] MEDS ORDERED: Gabapentin 400 MG CAPSULE PO SCH (15:00)
--- NOTE | 2019-04-15 15:15 | Operative Note ---
Date of procedure: 04/15/19 Pre-op diagnosis: Recurrent perineal abscess Post-op diagnosis: other (#1 perineal abscess #2 anal fistula) Procedure: 1 incision and drainage of perineal abscess #2 exam under anesthesia and #3 unroofing of anal fistula (superficial) Anesthesia: NAREN Surgeon: Aneudy Peña Was there an practice assistant present: No Estimated blood loss (cc): 10 Specimen: None Condition: stable Disposition: PACU Procedure in Detail: After informed consent patient was taken to the major operating suite placed in supine position given adequate general endotracheal anesthesia. He was placed in lithotomy position. The perineum was prepped and draped in sterile fashion utilizing Betadine solution and standard draping techniques. Timeout was taken and the patient was identified. I performed anoscopy. There was a superficial opening at the 12 o'clock position leading directly to the abscess. The a few fibers of the anal sphincter were involved. I worked both from the abscess side along a granulated tract and from the anal side to connect the 2 tracts along a straight line between the 2. Only a few fibers of the anal sphincter were involved. This was a superficial anal fistula area the abscess was incised and drained and the subcutaneous granulation tissue was debrided. The entire length of the tract was unroofed. The anus was packed with iodoform pack I injected 30 mL of half percent Marcaine with epinephrine for local pain management
[2019-04-15 16:15] VITALS: BP 136/80
--- NOTE | 2019-04-15 16:41 | Anesthesia Evaluation Post Op ---
Date of Encounter: 04/15/19 Time of Encounter: 16:10 - Vital Signs Vital Signs: Vital Signs/O2 Sat, Most Current Temp Pulse Resp BP Pulse Ox 97.8 F 62 14 136/80 96 04/15/19 15:58 04/15/19 16:08 04/15/19 16:08 04/15/19 16:08 04/15/19 16:08 - Lungs Lungs: Clear Ascult./Percussion - Airway Airway: Non-obstructed - Cardiovascular Regular Rate - Mental Status Mental Status: Alert & Oriented, Answers Appropriately - Pain Pain Scale: 8 (patient does not want pain medication, he wishes to go to his room) Pain Scale used: Numeric (1 - 10) - Nausea Vomiting Nausea Vomiting: Not Present - Hydration Hydration: NPO, Has not voided - Discharge PostOp Status: Transfer Patient to floor
--- NOTE | 2019-04-15 16:47 | Discharge Summary ---
<Beverly Ramesh Cal - Last Filed: 04/15/19 16:47> Orders not resulted at time of discharge: Pending orders 04/14/19 14:44 Urinalysis reflex Microscopic [URIN] Stat 04/14/19 17:50 Culture,Blood [BC] Stat Date of Encounter: 04/15/19 Time of Encounter: 16:45 - Discharge Diagnosis (1) Abscess of skin or subcutaneous tissue Priority: Primary Status: Acute Qualifiers: Site of cutaneous abscess: buttock Qualified Code(s): L02.31 - Cutaneous abscess of buttock General Surgery Exam Initial Vital Signs Temp Pulse Resp BP Pulse Ox 97.5 F L 88 18 143/88 97 04/14/19 13:41 04/14/19 13:41 04/14/19 13:41 04/14/19 13:41 04/14/19 13:41 - Hospital Course Hospital course: Mr. Cardenas is a 43 year old male 1 incision and drainage of perineal abscess #2 exam under anesthesia and #3 unroofing of anal fistula (superficial) today with Dr. Peña. Received phone call from patients RN. "He is being very belligerent. Patient ripped out his IV and stated he would not be remaining in the hospital. His father was at bedside to take him home. " Patient would not remain on the floor long enough for this [employer] STY[facility] to discharge him. "He stated he was leaving period." No discharge instructions were able to be given to the patient again as he stated he was leaving now. I did send antibiotics to the pharmacy as well as supplies for packing. On the telephone, through the bedside RN, the patient was reminded that he should not drink any alcohol with metronidazole. We will ask our office to reach out to the patient tomorrow to schedule follow-up appointment. I am concerned that he will not properly care for his wound as he would not permit discharge instructions to be given. - Time Spent with Patient Total time spent providing and/or coordinating discharge services: - Discharge Medications Prescriptions: New Ciprofloxacin [Cipro] 500 mg PO BID 7 Days #14 tablet metroNIDAZOLE [Flagyl] 500 mg PO TID 7 Days #14 tablet Polyhexam Biguan/Gauze Bandage [Curity Amd 4"X4" Non-Woven] 2 each TP AD #60 sponge Polyhexam Biguan/Gauze Bandage [Curity Amd Packing Strips] 1 each TP DAILY #1 bottle Adhesive Tape [Paper Tape] 1 each TP AD #1 tape Swab [Cotton Swabs] 1 each MC DAILY #30 swab Continued Ibuprofen [Motrin] 600 mg PO Q6HR PRN tablet PRN Reason: Moderate Pain Gabapentin [Neurontin] 800 mg PO TID Oxycodone HCl [Roxybond] 15 mg PO TID Acetaminophen [Tylenol] 650 mg PO Q6HR PRN PRN Reason: Mild Pain Oxycodone HCl 1 tab PO HS Home Medications: Ibuprofen [Motrin] 600 mg PO Q6HR PRN tablet 09/05/17 [Rx] Gabapentin [Neurontin] 800 mg PO TID 10/04/18 [History] Oxycodone HCl [Roxybond] 15 mg PO TID 10/04/18 [History] Acetaminophen [Tylenol] 650 mg PO Q6HR PRN 04/14/19 [History] Oxycodone HCl 1 tab PO HS 04/14/19 [History] Adhesive Tape [Paper Tape] 1 each TP AD #1 tape 04/15/19 [Rx] Ciprofloxacin [Cipro] 500 mg PO BID 7 Days #14 tablet 04/15/19 [Rx] Polyhexam Biguan/Gauze Bandage [Curity Amd 4"X4" Non-Woven] 2 each TP AD #60 sponge 04/15/19 [Rx] Polyhexam Biguan/Gauze Bandage [Curity Amd Packing Strips] 1 each TP DAILY #1 bottle 04/15/19 [Rx] Swab [Cotton Swabs] 1 each MC DAILY #30 swab 04/15/19 [Rx] metroNIDAZOLE [Flagyl] 500 mg PO TID 7 Days #14 tablet 04/15/19 [Rx] Allergies/Adverse Reactions: Allergy/AdvReac Type Severity Reaction Status Date / Time morphine Allergy Hives Verified 08/28/18 19:12 fentanyl AdvReac Nausea Verified 08/28/18 19:12 Date of admission: 04/14/19 17:46 Primary care physician: Mindy Hernandes Discharging clinician: Beverly Ramesh Anticipated date of discharge: 04/15/19 Labs on day of discharge: Labs from last 24 hours 04/15/19 05:49 POC Glucose 154 H Preliminary micro results at discharge 04/14/19 17:50 Blood Culture - Preliminary Peripheral Venipuncture Culture is incubating and being continuously monitored for growth. Final report to follow. 04/14/19 17:50 Blood Culture - Preliminary Peripheral Venipuncture Culture is incubating and being continuously monitored for growth. Final report to follow. - Impressions ITS Impressions Abdomen/Pelvis CT 04/14/19 14:44 IMPRESSION: No evidence for acute intra-abdominal or intrapelvic pathology. No bowel obstruction or inflammation. No free intraperitoneal air or fluid. No evidence for urinary obstruction. Left gluteal cleft fluid collection has decreased in size as compared to previous study. Stable adjacent soft tissue tract. D/ / Amilcar Hope MD / Amilcar Hope MD Interpreting Provider: Amilcar Hope MD - Patient Status Disposition: Home, Self-Care Condition: Fair - Discharge Instructions Instructions: Abscess (GEN) Follow Up With: Mindy Hernandes [Primary Care Provider] - <Aneudy Peña - Last Filed: 04/15/19 19:42> Orders not resulted at time of discharge: Pending orders 04/14/19 14:44 Urinalysis reflex Microscopic [URIN] Stat 04/14/19 17:50 Culture,Blood [BC] Stat Date of Encounter: 04/15/19 General Surgery Exam Initial Vital Signs Temp Pulse Resp BP Pulse Ox 97.5 F L 88 18 143/88 97 04/14/19 13:41 04/14/19 13:41 04/14/19 13:41 04/14/19 13:41 04/14/19 13:41 - Hospital Course Hospital course: Mr. Cardenas is a 43 year old male - Time Spent with Patient Total time spent providing and/or coordinating discharge services: Date of admission: 04/14/19 17:46 Primary care physician: Mindy Hernandes Labs on day of discharge: Labs from last 24 hours 04/15/19 05:49 POC Glucose 154 H Preliminary micro results at discharge 04/14/19 17:50 Blood Culture - Preliminary Peripheral Venipuncture Culture is incubating and being continuously monitored for growth. Final report to follow. 04/14/19 17:50 Blood Culture - Preliminary Peripheral Venipuncture Culture is incubating and being continuously monitored for growth. Final report to follow. - Impressions ITS Impressions Abdomen/Pelvis CT 04/14/19 14:44 IMPRESSION: No evidence for acute intra-abdominal or intrapelvic pathology. No bowel obstruction or inflammation. No free intraperitoneal air or fluid. No evidence for urinary obstruction. Left gluteal cleft fluid collection has decreased in size as compared to previous study. Stable adjacent soft tissue tract. D/ / Amilcar Hope MD / Amilcar Hope MD Interpreting Provider: Amilcar Hope MD - Attending Attestation I have personally performed a face to face evaluation on this patient. I have reviewed and agree with the care plan. History and Exam by me shows: The patient is seen and evaluated after his surgery. He is in good pain control and would like to follow at home. He was given instructions for sitz bath and packing. Ready for discharge. He is on chronic narcotics. No further narcotics will be necessary. Aneudy Peña MD FACS
== END 2019-04-15 16:38 | disposition home or self-care (01) ==
LOC: EMEROOARM 13:27 → 3ANU 13:27
PROVIDERS: ADMIT Surgery; ATTEND Surgery